=== PATIENT | female | born 1935 | race Caucasian/White ===

== ENCOUNTER → 2016-12-14 | Outpatient (CLI) | payer OTHER, MEDICARE ==
[~2016-12-14] MED LIST: ACET-1256 PO; ATOR-26 PO; CHOL100010 PO; COEN1CAP46 PO; DIGO0.1219 PO; DIGO0.1267 PO; LPR25 PO; LSX20 PO; METO25TA56 PO; PLV75 PO; RAMI2.5C PO; XRL20 PO
== END | disposition home or self-care (01) ==
LOC: C.LABSPEC 16:14
PROVIDERS: ATTEND Physician Assistant
DX: N95.0 Postmenopausal bleeding (principal)

== ENCOUNTER → 2016-12-18 | Outpatient (CLI) | payer OTHER, MEDICARE ==
[2016-12-18 13:33] LABS: BASO % 0.6 %; BASO ABS # 0.04 K/uL (0-0.2); COMPLETE YES; EOS % 2.9 %; HEMATOCRIT 43.1 % (37-47); LYMPH % 37.4 %; LYMPH ABS # 2.59 K/uL (1.2-3.4); MEAN CELL VOLUME 81.5 fL (80-100); MEAN CORPUSCULAR HEMOGLOBIN 24.8 pg (25-34); MEAN CORPUSCULAR HGB CONC 30.4 g/dl (32-36); MEAN PLATELET VOLUME 10.6 fL (7.4-10.4); NEUT % 49.1 %; PLATELET COUNT 243 K/uL (130-400); RED BLOOD COUNT 5.29 M/uL (4.2-5.4); WHITE BLOOD COUNT 6.93 K/uL (4.8-10.8)
[2016-12-18 14:04] LABS: ESTIMATED AVERAGE GLUCOSE 151 mg/dl; HA1C FLAG Normal (Normal)
[2016-12-18 14:40] LABS: BLOOD UREA NITROGEN 21 mg/dl (7-18); BUN/CREATININE RATIO 27.9 (10-20); CALCIUM 9.7 mg/dl (8.5-10.1); CARBON DIOXIDE 28 mmol/L (21-32); CHLORIDE 107 mmol/L (98-107); CREATININE 0.76 mg/dl (0.60-1.20); GLUCOSE 83 mg/dl (70-99); POTASSIUM 3.5 mmol/L (3.5-5.1); SODIUM 145 mmol/L (136-145)
[2016-12-18 14:51] LABS: FERRITIN 10.1 ng/ml (8.0-388.0); TOTAL IRON BINDING CAPACITY 489 mcg/dl (250-450)
--- NOTE | 2016-12-22 08:18 | CODING QUERY MEDICAL NECESSITY ---
SUPPORTING DIAGNOSIS NEEDED Dr. Culp, A supporting diagnosis is required for the test/procedure performed on this patient in order for us to be reimbursed by the patient's insurance. Please provide a supporting diagnosis for the following test/procedure listed below next to the test name along with your signature. *If there is no additional diagnosis for this patient that would support the following test/procedure please document that below next to the test/procedure. Test(s)/Procedure(s) that require a supporting diagnosis: * ([id number]) B12 VITAMIN LEVEL DIAGNOSIS: DATE OF SERVICE: 12/18/16 Provider Signature: Date: Thank you [place] [facility] Information Management Once completed, please kindly fax back to [phone] For questions please call [phone]
== END | disposition home or self-care (01) ==
LOC: C.LABBC 11:21
PROVIDERS: ATTEND Internal Medicine Geriatric Medicine
DX: I10 Essential (primary) hypertension (principal); I25.10 Atherosclerotic heart disease of native coronary artery without angina pectoris; M81.0 Age-related osteoporosis without current pathological fracture; E11.9 Type 2 diabetes mellitus without complications; E55.9 Vitamin D deficiency, unspecified; I48.2 Chronic atrial fibrillation; D64.9 Anemia, unspecified

== ENCOUNTER → 2017-03-09 | Day surgery (SDC) | payer OTHER, MEDICARE ==
[2017-03-06 14:12] VITALS: BMI 25.0
--- NOTE | 2017-03-06 14:54 | PAT Medication Instructions ---
Service Date Mar 06, 2017. Current Home Medication List Acetaminophen (Tylenol), 1-2 TAB PO U PRN for Pain Atorvastatin (Lipitor), 80 MG PO HS Cholecalciferol (Vitamin D), 2,000 INTER.UNIT PO QPM Clopidogrel Bisulfate (Clopidogrel), 75 MG PO QAM Coenzyme Q10 (Ubidecarenone) (Coq-10 100 mg), 100 MG PO QAM Digoxin (Digox), 1 TAB PO QDL Furosemide (Furosemide), 20 MG PO QPM Metoprolol Tartrate (Lopressor) (Lopressor), 50 MG PO QAM Metoprolol Tartrate (Lopressor) (Lopressor), 25 MG PO QPM Ramipril (Ramipril), 2.5 MG PO QPM Rivaroxaban (Xarelto), 20 MG PO QPM Medication Instructions For Your Scheduled Surgery - Per surgeon/skidder lever operator instructions: Clopidogrel Bisulfate (Clopidogrel), 75 MG PO QAM Rivaroxaban (Xarelto), 20 MG PO QPM - Hold the following medications 03/07/17: Coenzyme Q10 (Ubidecarenone) (Coq-10 100 mg), 100 MG PO QAM - Take the following medications as scheduled the morning of surgery with a small sip of water: Metoprolol Tartrate (Lopressor) (Lopressor), 50 MG PO QAM Acetaminophen (Tylenol), 1-2 TAB PO U PRN for Pain (if needed) - Hold the following medications as scheduled the night before surgery: Ramipril (Ramipril), 2.5 MG PO QPM - Take the following medications as scheduled the night before surgery: Metoprolol Tartrate (Lopressor) (Lopressor), 25 MG PO QPM Furosemide (Furosemide), 20 MG PO QPM Digoxin (Digox), 1 TAB PO QDL Cholecalciferol (Vitamin D), 2,000 INTER.UNIT PO QPM Atorvastatin (Lipitor), 80 MG PO HS Acetaminophen (Tylenol), 1-2 TAB PO U PRN for Pain (if needed) If you have any questions please call us at [phone] or [phone] or [phone]
[2017-03-06 15:35] LABS: BASO % 0.4 %; BASO ABS # 0.03 K/uL (0-0.2); COMPLETE YES; EOS % 2.7 %; HEMATOCRIT 38.3 % (37-47); IG% 0.1 %; LYMPH ABS # 2.26 K/uL (1.2-3.4); MEAN CELL VOLUME 82.2 fL (80-100); MEAN CORPUSCULAR HEMOGLOBIN 25.8 pg (25-34); MEAN CORPUSCULAR HGB CONC 31.3 g/dl (32-36); MEAN PLATELET VOLUME 10.4 fL (7.4-10.4); MONO % 9.5 %; NEUT % 55.3 %; PLATELET COUNT 246 K/uL (130-400); RED BLOOD COUNT 4.66 M/uL (4.2-5.4); WHITE BLOOD COUNT 7.07 K/uL (4.8-10.8)
[2017-03-06 16:21] LABS: BUN/CREATININE RATIO 20.3 (10-20); CALCIUM 9.6 mg/dl (8.5-10.1); CREATININE 0.95 mg/dl (0.60-1.20); POTASSIUM 3.8 mmol/L (3.5-5.1)
[~2017-03-09] VITALS: Ht 147.3 cm; Wt 54.4 kg
[~2017-03-09] MED LIST changes: +ACETAMINOPHEN 325 MG TAB PO PRN; +ACETAMINOPHEN 650 MG SUPP PR PRN; +ATROPINE SULFATE 0.1 MG/ML 5ML SYR IV PRN; -DIGO0.1267 PO; +EpHEDrine SULFATE INJ 50 MG/ML AMP IV PRN; +FENTANYL CITRATE INJ 50 MCG/1 ML 2 ML VIAL IV PRN; +FENTANYL CITRATE INJ 50 MCG/1 ML 2 ML VIAL ONE; +IBUPROFEN 200 MG TAB PO PRN; +IBUPROFEN 600 MG TAB PO PRN; +LACTATED RINGER'S 1000ML 1,000 ML IV SCH; +LIDOCAINE HCL 2% 2 ML VIAL (20MG/ML) ONE; -LPR25 PO; +MoRPHine SULFATE 2 MG/ML CARP IV PRN; +MoRPHine SULFATE 4 MG/ML 1 ML CARP\\VIAL IV PRN; +NURSING VERBAL MED ORDER ONE; +ONDANSETRON INJ 2 MG/ML 2 ML VIAL IV PRN; +ONDANSETRON INJ 2 MG/ML 2 ML VIAL ONE; +OXYCODONE/ACETAMINOPHEN 5-325 TAB PO PRN; +PHENYLEPHRINE 100MCG/ML 5ML SYR ONE; +PROPOFOL IV EMULSION 10 MG/ML 20 ML VIAL IV ONE
[2017-03-09 05:35] VITALS: BP 177/71; PULSE 79; TEMP 36.6; O2SAT 97; Ht 147.3 cm; Wt 54.4 kg
--- NOTE | 2017-03-09 06:49 | History & Physical Bridge Note ---
H&P Re-Evaluation Bridge Note: I have examined the patient, reviewed the History & Physical and in the interval since the performance of the History & Physical I have noted the following changes of clinical significance: No changes noted
--- NOTE | 2017-03-09 07:51 | Discharge Instructions ---
Discharge Instructions Date of Service Mar 09, 2017. Visit Reason for Visit: Post Menopausal Bleeding, Endometrial Mass Discharge Discharge Diagnosis / Problem: s/p d&c/hysteroscopy and removal of mass Discharge Goals Goal(s): Specific goals Activity Recommendations Activity Limitations: per Instructions/Follow-up section Anesthesia . Post Anesthesia Instructions: If you have had General Anesthesia or IV Sedation: * Do not drive today. * Resume driving when surgeon permits. * Do not make important decisions or sign legal documents today. * Call surgeon for: 1. Temperature elevations greater than 101 degrees F. 2. Uncontrollable pain. 3. Excessive bleeding. 4. Persistent nausea and vomiting. 5. Medication intolerance (nausea, vomiting or rash). * For nausea and vomiting use only clear liquids such as: tea, soda, bouillon until nausea subsides, then gradually increase diet as tolerated. * If you have any concerns or questions, call your surgeon's office. If physician is unavailable and it is an emergency, call 911 or go to the nearest emergency room. . Instructions / Follow-Up Instructions / Follow-Up ACTIVITY RECOMMENDATIONS: * Avoid tampons, douching, hot tubs, pools, and intercourse until bleeding has stopped. * May shower as usual. * No strenuous activity for 24-48 hours. After 24-48 hours, you may do anything you feel like doing (driving and sports are okay). SPECIAL CARE INSTRUCTIONS: Special Diet: * Mild nausea may occur in the immediate post-operative period. * Take clear liquids such as tea, cola or bouillon until all nausea has subsided; you may then resume your normal diet. Special Care: * Light bleeding and vaginal spotting can last from a few days to 3-4 weeks. Call your doctor if bleeding becomes heavier than the heaviest part of your period. * Check your temperature twice a day for one week. If it goes above 100.4 degrees Fahrenheit (38.0 Celsius), notify your doctor. * Call your doctor's office for an appointment for 6 weeks after your surgery. FOLLOW-UP VISIT: Call your doctor's office for an appointment for 6 weeks after your surgery. Diet Recommendations Recommended Home Diet: no limitations, resume previous diet Pending Studies Studies pending at discharge: no Medical Emergencies . Who to Call and When: Medical Emergencies: If at any time you feel your situation is an emergency, please call 911 immediately. . Non-Emergent Contact Non-Emergency issues call your: Parts Remover . . "Provider Documentation" section prepared by Evelia Hammer. .
--- NOTE | 2017-03-09 07:53 | [facility] Post Operative Brief Note ---
Immediate Operative Summary Operative Date Mar 09, 2017. Pre-Operative Diagnosis postmenopausal bleeding endometrial mass Post-Operative Diagnosis same Procedure(s) Performed D&C/HSC removal of endometrial mass via myosure Surgeon Jaquelin Limehouse Worker Surgeon(s) none Estimated Blood Loss 5cc Findings uterus sounded to 6-7cm, broad based mass noted on the anterior wall of the uterus, other endometrium appeared atrophic Fluids (cc crystalloids) 500cc, 100cc hsc deficit Specimens curretings myosure mass Drains none Anesthesia lma Complication(s) None Disposition Recovery Room / PACU
--- NOTE | 2017-03-09 08:43 | Anesthesiology Progress Note ---
Anesthesia Post Op Note Date & Time Mar 09, 2017 at 08:43 Vital Signs Pain Intensity: 4 Vital Signs Past 12 Hours Date Time Temp Pulse Resp B/P (MAP) Pulse Ox O2 Delivery O2 Flow Rate FiO2 03/09/17 08:40 36.6 03/09/17 08:37 63 22 98 03/09/17 08:37 65 22 03/09/17 08:36 160/73 03/09/17 08:32 63 16 94 03/09/17 08:32 62 16 03/09/17 08:31 146/57 03/09/17 08:28 62 12 03/09/17 08:28 60 12 95 03/09/17 08:26 153/64 03/09/17 08:23 67 15 94 03/09/17 08:23 63 15 03/09/17 08:22 71 20 03/09/17 08:22 67 20 97 03/09/17 08:21 173/87 03/09/17 08:17 62 16 03/09/17 08:17 63 16 99 03/09/17 08:16 162/79 03/09/17 08:12 73 17 03/09/17 08:12 72 17 100 03/09/17 08:11 174/69 03/09/17 08:07 62 14 03/09/17 08:07 61 14 100 03/09/17 08:06 63 19 182/71 100 03/09/17 08:06 65 19 03/09/17 08:01 63 17 163/73 100 03/09/17 08:01 67 17 03/09/17 07:56 65 17 03/09/17 07:56 65 17 170/70 100 03/09/17 07:52 162/79 03/09/17 07:51 36.6 62 14 162/79 100 Mask 10 03/09/17 05:35 36.6 79 20 177/71 (106) 97 Room Air Notes Mental Status: alert / awake / arousable, participated in evaluation Pt Amnestic to Procedure: Yes Nausea / Vomiting: adequately controlled Pain: adequately controlled Airway Patency, RR, SpO2: stable & adequate BP & HR: stable & adequate Hydration State: stable & adequate Anesthetic Complications: no major complications apparent
[2017-03-09 08:53] VITALS: BP 148/64; PULSE 64; TEMP 36.5; O2SAT 94
--- NOTE | 2017-03-09 09:02 | OPERATIVE REPORT ---
DATE OF OPERATION: 03/09/2017 PREOPERATIVE DIAGNOSES: 1. Endometrial mass. 2. Post-menopausal bleeding. POSTOPERATIVE DIAGNOSES: Same. PROCEDURE: D&C, hysteroscopy with MyoSure removal of endometrial mass. SURGEON: Dr. Evelia Hammer. ANESTHESIA: General per laryngeal mask. ESTIMATED BLOOD LOSS: 5 mL. FLUIDS: 500 mL of IV fluids and 100 mL hysteroscopic deficit. URINE OUTPUT: About 50 mL of clear yellow urine drained from the bladder at the beginning of the procedure. INDICATIONS: Davida is an 81-year-old postmenopausal female who presented to ri for postmenopausal bleeding. She had some blood in her uterus with outlining an endometrial mass. FINDINGS: Uterus sounded to 6-7 cm. There was a broad-based endometrial mass/growth from the anterior uterine wall. The other endometrium appeared normal. Tubal ostia visualized and normal. COMPLICATIONS: None. DRAINS: None. DISPOSITION: To recovery room in stable condition. DESCRIPTION OF PROCEDURE: The patient was taken to the operating room, where she was identified verbally and by bracelet. She was placed in dorsal supine position in Yellofin stirrups prior to going to sleep, to make sure the patient comfort. She was then put to sleep via anesthesia and laryngeal mask. She was prepped and draped in normal sterile fashion. Timeout was held identifying correct patient, procedure and positioning. An exam under anesthesia was performed. The uterus was small and mobile. There were no appreciable adnexal masses. The bladder was drained of urine. A Flores retractor was placed in the posterior vagina. The anterior lip of the cervix was grasped with a single tooth tenaculum. The uterus sounded to 6-7 cm and it was dilated to #25 Hanna dilator. The MyoSure hysteroscope was introduced with the above noted finding of a mass, broad based mass on the anterior uterine wall. A MyoSure light was placed through the scope and the mass was removed in its entirety. Hemostasis was noted to be good. The MyoSure scope was removed. A curettage was performed and the procedure was terminated. All instruments were removed from the vagina. Hemostasis was noted to be good. There was split in the perineal skin for manipulation that was hemostatic and did not require stitching. All sponge, lap and needle counts were correct x2. The patient tolerated the procedure well and was taken to recovery room in stable condition. I attest to the content of the Intraoperative Record and any orders documented therein. Any exceptions are noted below. ZACK
[2017-03-09 09:30] VITALS: BP 149/61; PULSE 63; TEMP 36.4; O2SAT 99
== END | disposition home or self-care (01) ==
LOC: C.ACU 05:12
PROVIDERS: ATTEND Obstetrics & Gynecology
DX: C54.1 Malignant neoplasm of endometrium (principal); I34.0 Nonrheumatic mitral (valve) insufficiency; I48.2 Chronic atrial fibrillation; I25.10 Atherosclerotic heart disease of native coronary artery without angina pectoris; I49.5 Sick sinus syndrome; I10 Essential (primary) hypertension; I66.03 Occlusion and stenosis of bilateral middle cerebral arteries; E78.5 Hyperlipidemia, unspecified; E11.9 Type 2 diabetes mellitus without complications; I70.1 Atherosclerosis of renal artery; K21.9 Gastro-esophageal reflux disease without esophagitis; D64.9 Anemia, unspecified; E55.9 Vitamin D deficiency, unspecified; H04.129 Dry eye syndrome of unspecified lacrimal gland; M81.0 Age-related osteoporosis without current pathological fracture; Z85.3 Personal history of malignant neoplasm of breast; Z86.73 Personal history of transient ischemic attack (TIA), and cerebral infarction without residual deficits; Z79.01 Long term (current) use of anticoagulants; Z79.899 Other long term (current) drug therapy; Z95.0 Presence of cardiac pacemaker

== ENCOUNTER → 2017-05-11 | Outpatient (CLI) | payer OTHER, MEDICARE ==
[~2017-05-11] MED LIST changes: -ACETAMINOPHEN 325 MG TAB PO PRN; -ACETAMINOPHEN 650 MG SUPP PR PRN; -ATROPINE SULFATE 0.1 MG/ML 5ML SYR IV PRN; -EpHEDrine SULFATE INJ 50 MG/ML AMP IV PRN; -FENTANYL CITRATE INJ 50 MCG/1 ML 2 ML VIAL IV PRN; -FENTANYL CITRATE INJ 50 MCG/1 ML 2 ML VIAL ONE; -IBUPROFEN 200 MG TAB PO PRN; -IBUPROFEN 600 MG TAB PO PRN; -LACTATED RINGER'S 1000ML 1,000 ML IV SCH; -LIDOCAINE HCL 2% 2 ML VIAL (20MG/ML) ONE; -MoRPHine SULFATE 2 MG/ML CARP IV PRN; -MoRPHine SULFATE 4 MG/ML 1 ML CARP\\VIAL IV PRN; -NURSING VERBAL MED ORDER ONE; -ONDANSETRON INJ 2 MG/ML 2 ML VIAL IV PRN; -ONDANSETRON INJ 2 MG/ML 2 ML VIAL ONE; -OXYCODONE/ACETAMINOPHEN 5-325 TAB PO PRN; -PHENYLEPHRINE 100MCG/ML 5ML SYR ONE; -PROPOFOL IV EMULSION 10 MG/ML 20 ML VIAL IV ONE
[2017-05-11 13:53] LABS: BASO % 0.2 %; BASO ABS # 0.02 K/uL (0-0.2); COMPLETE YES; EOS % 4.8 %; IG% 0.2 %; LYMPH % 14.5 %; LYMPH ABS # 1.52 K/uL (1.2-3.4); MEAN CELL VOLUME 77.8 fL (80-100); MEAN CORPUSCULAR HEMOGLOBIN 23.3 pg (25-34); MEAN PLATELET VOLUME 10.6 fL (7.4-10.4); MONO % 12.2 %; NEUT % 68.1 %; PLATELET COUNT 298 K/uL (130-400); RED BLOOD COUNT 4.63 M/uL (4.2-5.4); WHITE BLOOD COUNT 10.45 K/uL (4.8-10.8)
== END | disposition home or self-care (01) ==
LOC: C.LABBC 11:43
PROVIDERS: ATTEND Physician Assistant Medical
DX: Z51.81 Encounter for therapeutic drug level monitoring (principal); Z79.01 Long term (current) use of anticoagulants; E11.9 Type 2 diabetes mellitus without complications; I48.2 Chronic atrial fibrillation

== ENCOUNTER → 2017-06-27 | Outpatient (CLI) | payer OTHER, MEDICARE ==
--- NOTE | 2017-06-28 07:55 | MAMMOGRAPHY REPORT ---
BILATERAL DIGITAL SCREENING MAMMOGRAM TOMOSYNTHESIS WITH CAD: 06/27/2017 CLINICAL HISTORY: Asymptomatic. Personal history of breast cancer. TECHNIQUE: Breast tomosynthesis in addition to standard 2D mammography was performed. Current study was also evaluated with a Computer Aided Detection (CAD) system. COMPARISON: Comparison is made to exams dated: 12/08/2014 mammogram, 10/14/2013 mammogram, 10/02/2011 ma mmogram, 12/09/2015 mammogram, 10/07/2012 mammogram, and 09/30/2010 mammogram - [facility]. BREAST COMPOSITION: The tissue of both breasts is extremely dense, which lowers the sensitivity of m ammography. FINDINGS: No suspicious masses, calcifications, or areas of architectural distortion are noted in ei ther breast. There has been no significant interval change compared to prior exams. There are stabl e postsurgical changes in the right upper inner posterior breast, including a stable density, archite ctural distortion, surgical clips and a biopsy clip at the lumpectomy bed, best seen on the MLO view. Scattered bilateral benign-appearing calcifications are not significantly changed. Nodular asymmetr y in the left medial posterior breast on the CC view is similar dating back to at least the 2008 exam . IMPRESSION: ACR BI-RADS CATEGORY 2: BENIGN There is no mammographic evidence of malignancy. A 1 year screening mammogram is recommended. The pa tient will receive written notification of the results. Approximately 10% of breast cancers are not detected with mammography. A negative mammographic report should not delay biopsy if a clinically suggestive mass is present. Rola Castillo M.D. /:06/27/2017 15:39:42 Contract Programmer: Linda RIVERA(Dagoberto)(M), [facility] letter sent: Normal 1/2 BI-RADS Code: ACR BI-RADS Category 2: Benign
== END | disposition home or self-care (01) ==
LOC: C.MAMM 13:19
PROVIDERS: ATTEND Obstetrics & Gynecology
DX: Z12.31 Encounter for screening mammogram for malignant neoplasm of breast (principal)

== ENCOUNTER → 2017-08-08 | Outpatient (CLI) | payer OTHER, MEDICARE ==
[2017-08-08 14:27] LABS: ALBUMIN 3.6 gm/dl (3.4-5.0); ALT/SGPT 29 U/L (12-78); AST/SGOT 22 U/L (15-37); BLOOD UREA NITROGEN 20 mg/dl (7-18); CALCIUM 9.1 mg/dl (8.5-10.1); CARBON DIOXIDE 28 mmol/L (21-32); CREATININE 0.73 mg/dl (0.60-1.20); GLUCOSE 130 mg/dl (70-99); POTASSIUM 3.2 mmol/L (3.5-5.1); SODIUM 140 mmol/L (136-145)
[2017-08-08 14:33] LABS: BASO % 0.9 %; BASO ABS # 0.05 K/uL (0-0.2); EOS % 2.2 %; EOS ABS # 0.13 K/uL (0-0.5); HEMATOCRIT 31.1 % (37-47); HEMOGLOBIN 8.5 g/dL (12.0-16.0); MEAN CELL VOLUME 67.3 fL (80-100); MEAN CORPUSCULAR HEMOGLOBIN 18.4 pg (25-34); MEAN CORPUSCULAR HGB CONC 27.3 g/dl (32-36); MEAN PLATELET VOLUME 10.1 fL (7.4-10.4); MONO % 11.9 %; MONO ABS # 0.69 K/uL (0.11-0.59); NEUT ABS # 2.44 K/uL (1.4-6.5); PLATELET COUNT 267 K/uL (130-400); RED CELL DISTRIBUTION WIDTH CV 18.2 % (11.5-14.5); WHITE BLOOD COUNT 5.81 K/uL (4.8-10.8)
[2017-08-08 14:38] LABS: ALKALINE PHOSPHATASE 72 U/L (45-117); CHOLESTEROL 127 mg/dl (0-200); LDL CHOLESTEROL CALCULATED 69 mg/dl; TOTAL PROTEIN 7.1 gm/dl (6.4-8.2)
== END | disposition home or self-care (01) ==
LOC: C.LABBC 10:28
PROVIDERS: ATTEND Internal Medicine Geriatric Medicine
DX: I10 Essential (primary) hypertension (principal); I25.10 Atherosclerotic heart disease of native coronary artery without angina pectoris; E78.5 Hyperlipidemia, unspecified; E11.9 Type 2 diabetes mellitus without complications; I49.5 Sick sinus syndrome; C55 Malignant neoplasm of uterus, part unspecified

== ENCOUNTER 2017-10-03 07:13 | Emergency (ER) | payer OTHER, MEDICARE ==
[~2017-10-03] VITALS: Ht 147.3 cm; Wt 53.0 kg
[~2017-10-03 07:13] MED LIST changes: -ACET-1256 PO; -CHOL100010 PO; +CLOP1TAB15 PO; -COEN1CAP46 PO; +FERR325T5 PO; +FURO-85 PO; -LSX20 PO; -PLV75 PO; +POTA20TA16 PO; +RIVA1TAB4 PO; +VITAMIN D PO; -XRL20 PO
[2017-10-03 07:20] VITALS: TEMP 36.6; O2SAT 99; Ht 147.3 cm; Wt 53.0 kg
[2017-10-03] MEDS ORDERED: SODIUM CHLORIDE 0.9% 1000ML 1,000 ML IV STA (07:49)
[2017-10-03 08:05] LABS: INR 1.4 (0.9-1.1); PTT PATIENT 26.1 SECONDS (21.0-31.0)
[2017-10-03 08:07] LABS: CALCIUM 9.7 mg/dl (8.5-10.1); CREATININE 0.79 mg/dl (0.60-1.20); POTASSIUM 3.9 mmol/L (3.5-5.1)
[2017-10-03] MEDS ORDERED: FERR1TAB13 PO (08:13)
[2017-10-03] MEDS ORDERED: CHOL100010 PO (08:13)
[2017-10-03] MEDS ORDERED: CLOP1TAB15 PO (08:13)
[2017-10-03] MEDS ORDERED: LNX125 PO (08:13)
[2017-10-03] MEDS ORDERED: METO25TA56 PO ×2 (08:13)
[2017-10-03] MEDS ORDERED: ATOR80TA PO (08:13)
[2017-10-03] MEDS ORDERED: COEN100C3 PO (08:13)
[2017-10-03] MEDS ORDERED: ALT25 PO (08:13)
[2017-10-03] MEDS ORDERED: POTA20TA16 PO (08:13)
[2017-10-03] MEDS ORDERED: RIVA1TAB4 PO (08:13)
[2017-10-03 08:16] LABS: CKMB 3.6 ng/ml (0.5-3.6); TOTAL PROTEIN 7.6 gm/dl (6.4-8.2)
--- NOTE | 2017-10-03 08:17 | DIAGNOSTIC IMAGING REPORT ---
CHEST ONE VIEW PORTABLE HISTORY: 81 years-old Female EVALUATE ALTERED MENTAL STATUS/WEAKNESS acute weakness with altered mental status COMPARISON: Chest radiograph 07/25/2016 TECHNIQUE: Portable AP view of the chest FINDINGS: Cardiac silhouette enlarged, unchanged. Atherosclerosis of the aorta. Single lead left subclavian pacer is again noted which is also unchanged. No pneumothorax or pleural effusion. Patchy opacity of the left lung base redemonstrated. Surgical clips project over the medial right lung base. No overt pulmonary edema. Bones of the chest appear grossly intact. Sigmoidal scoliosis partially imaged. IMPRESSION: 1. Cardiomegaly without overt pulmonary edema. 2. Subsegmental left basilar opacity is unchanged, likely reflecting atelectasis or scarring. The above report was generated using voice recognition software. It may contain grammatical, syntax or spelling errors. Electronically signed by: Kobe Smith M.D. 10/03/2017 8:16 AM Dictated Date/Time: 10/03/2017 8:14 AM
[2017-10-03 08:18] LABS: HEMATOCRIT 44.6 % (37-47); HEMOGLOBIN 13.1 g/dL (12.0-16.0); MEAN CELL VOLUME 70.3 fL (80-100); MEAN CORPUSCULAR HEMOGLOBIN 20.7 pg (25-34); MEAN CORPUSCULAR HGB CONC 29.4 g/dl (32-36); PLATELET COUNT 263 K/uL (130-400); RED CELL DISTRIBUTION WIDTH CV 23.2 % (11.5-14.5); RED CELL DISTRIBUTION WIDTH SD 58.9 fL (36.4-46.3); WHITE BLOOD COUNT 7.12 K/uL (4.8-10.8)
--- NOTE | 2017-10-03 08:21 | DIAGNOSTIC IMAGING REPORT ---
CT HEAD WITHOUT CONTRAST (CT) CLINICAL HISTORY: Altered mental status. Weakness. COMPARISON STUDY: 05/04/2016 TECHNIQUE: Axial CT of the brain is performed from the vertex to the skull base. IV contrast was not administered for this examination. A dose lowering technique was utilized adhering to the principles of ALARA. CT DOSE: 638.56 mGycm FINDINGS: No intra or extra-axial mass lesions are visualized. There is no CT evidence of acute cortical infarction. There is no evidence of midline shift. There is no acute hemorrhage. No calvarial fractures are visualized. There are patchy white matter hypodensities likely on a small vessel basis. 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 There is no evidence of pathologic ventricular dilatation. There is no evidence of acute sinusitis IMPRESSION: No acute intracranial findings Electronically signed by: Tom Jenkins M.D. 10/03/2017 8:19 AM Dictated Date/Time: 10/03/2017 8:17 AM
[2017-10-03 08:37] LABS: BASO ABS # 0.07 K/uL (0-0.2); EOS % 1.1 %; EOS ABS # 0.08 K/uL (0-0.5); IG# 0.01 K/uL (0.00-0.02); LYMPH % 23.2 %; LYMPH ABS # 1.65 K/uL (1.2-3.4); MONO % 11.4 %; MONO ABS # 0.81 K/uL (0.11-0.59); NEUT % 63.2 %
--- NOTE | 2017-10-03 09:26 | EMERGENCY ROOM VISIT NOTE ---
History Report prepared by [place]: Annia Landers Under the Supervision of: Dr. Giorgio Zelaya D.O. First contact with patient: 07:39 Chief Complaint: CONFUSION Stated Complaint: AMS Nursing Triage Summary: Pt arrives via ALS litter from home with c/o confusion for the past couple days. Per medic, pt lives alone, called 911 herself. Medic reports pt was not able to tell him her or answer other questions that were asked. Medic reports pt reported to him "time lapses", difficulty ambulating, and difficulty speaking which he states he did not observe. Upon arrival, pt speaking clearly, was oriented to place, month, year, president. States she had a fall at the end of Jul resulting in left knee pain. Edema noted to lower extremities. Pt denies pain. Denies urinary s/sx. Hx of a.fib, has a pacer. History of Present Illness The patient is a 81 year old female who presents to the Emergency Room with complaints of constant confusion for the past few days. The patient was brought to the ED by ambulance for further evaluation. Per EMS, the patient lives at home alone and called 911 herself this morning. He reports that the patient was unable to give her or answer other questions. The patient is currently complaining of confusion. She states that she has "lost track of time" over the past few days. She has been waking up in her home confused and states that she doesn't recognize the furniture or where she. As she goes through her day, her confusion improves. The patient states that she is not able to get around as well at home. She is eating and drinking normally. She states that she is 62 years old. The patient denies headache, chest pain, shortness of breath, weakness, abdominal pain, and vomiting. She notes that she fell at the end of July and injured her left knee. She denies any other injury occurring at that time. The patient takes Xarelto for A-fib. She has a pacemaker in place. Source of History: patient, EMS Onset: a few days ago Position: other (global) Quality: other (confusion) Timing: constant Modifying Factors (Relieving): other (time - improves throughout the day) Associated Symptoms: No headache, No chest pain, No SOB, No vomiting, No abdominal pain, No weakness Review of Systems See HPI for pertinent positives & negatives. A total of 10 systems reviewed and were otherwise negative. Past Medical & Surgical Medical Problems: (1) A-fib (2) Afib (3) Expressive aphasia (4) heart disease (5) Hypertension Family History Cancer Diabetes mellitus Gallbladder disease Heart disease Hypertension Lung disease Social History Smoking Status: Former Smoker Drug Use: none Marital Status: single Housing Status: lives alone Occupation Status: retired Current/Historical Medications Scheduled Atorvastatin (Lipitor), 80 MG PO DAILY Cholecalciferol (Vitamin D), 3,000 UNITS PO DAILY Clopidogrel (Plavix), 75 MG PO DAILY Coenzyme Q10 (Ubidecarenone) (Co Q-10), 100 MG PO DAILY Digoxin (Digoxin), 0.125 MG PO DAILY Ferrous Sulfate (Kp Ferrous Sulfate), 325 MG PO DAILY Metoprolol Tartrate (Lopressor) (Lopressor), 50 MG PO QAM Metoprolol Tartrate (Lopressor) (Lopressor), 25 MG PO QPM Potassium Ext Rel (Klor-Con), 20 MEQ PO DAILY Ramipril (Altace), 2.5 MG PO DAILY Rivaroxaban (Xarelto), 20 MG PO QPM Allergies Coded Allergies: Diltiazem (Verified Allergy, Severe, HIVES, 10/03/17) Alendronate (Verified Allergy, Unknown, bad stomach pains, 10/03/17) Cholestyramine (Verified Allergy, Unknown, UNKNOWN, 10/03/17) Ezetimibe (Verified Allergy, Unknown, UNKNOWN, 10/03/17) Ibandronic Acid (Verified Allergy, Unknown, UNKNOWN, 10/03/17) Niacin (Verified Allergy, Unknown, UNKNOWN, 10/03/17) Risedronate (Verified Allergy, Unknown, UNKNOWN, 10/03/17) Simvastatin (Verified Allergy, Unknown, UNKNOWN, 10/03/17) Physical Exam Vital Signs Date Time Temp Pulse Resp B/P (MAP) Pulse Ox O2 Delivery O2 Flow Rate FiO2 10/03/17 09:46 86 18 162/88 95 10/03/17 09:00 70 18 166/79 100 Room Air 10/03/17 08:22 67 18 167/111 97 Room Air 10/03/17 07:24 88 10/03/17 07:20 99 Room Air 10/03/17 07:20 36.6 81 18 176/85 100 Room Air Physical Exam VITAL SIGNS: were reviewed as above. GENERAL:Non-toxic in appearance. SKIN: Warm dry and pink. HEAD: Normocephalic and atraumatic. OROPHARYNX: Is clear and moist NECK: Supple without lymphadenopathy or meningismus. LUNGS: clear. HEART: Regular rate and rhythm. ABDOMEN: Soft and nontender. EXTREMITIES: Warm and well perfused. NEUROLOGICALLY: Awake alert and oriented without focal deficit. Cranial nerves 2 -12 are intact. There is no pronator drift. Cerebellar testing is within normal limits. There is no nystagmus. There is no facial droop. Speech is clear. Vision is grossly normal. MUSCULOSKELETAL: Good muscle tone. No evidence of trauma. Medical Decision & Procedures ER Provider Diagnostic Interpretation: Radiology results as stated below per my review and radiologist interpretation: CT HEAD WITHOUT CONTRAST (CT) CLINICAL HISTORY: Altered mental status. Weakness. COMPARISON STUDY: 05/04/2016 TECHNIQUE: Axial CT of the brain is performed from the vertex to the skull base. IV contrast was not administered for this examination. A dose lowering technique was utilized adhering to the principles of ALARA. CT DOSE: 638.56 mGycm FINDINGS: No intra or extra-axial mass lesions are visualized. There is no CT evidence of acute cortical infarction. There is no evidence of midline shift. There is no acute hemorrhage. No calvarial fractures are visualized. There are patchy white matter hypodensities likely on a small vessel basis. 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 There is no evidence of pathologic ventricular dilatation. There is no evidence of acute sinusitis IMPRESSION: No acute intracranial findings Electronically signed by: Tom Jenkins M.D. 10/03/2017 8:19 AM Dictated Date/Time: 10/03/2017 8:17 AM CHEST ONE VIEW PORTABLE HISTORY: 81 years-old Female EVALUATE ALTERED MENTAL STATUS/WEAKNESS acute weakness with altered mental status COMPARISON: Chest radiograph 07/25/2016 TECHNIQUE: Portable AP view of the chest FINDINGS: Cardiac silhouette enlarged, unchanged. Atherosclerosis of the aorta. Single lead left subclavian pacer is again noted which is also unchanged. No pneumothorax or pleural effusion. Patchy opacity of the left lung base redemonstrated. Surgical clips project over the medial right lung base. No overt pulmonary edema. Bones of the chest appear grossly intact. Sigmoidal scoliosis partially imaged. IMPRESSION: 1. Cardiomegaly without overt pulmonary edema. 2. Subsegmental left basilar opacity is unchanged, likely reflecting atelectasis or scarring. The above report was generated using voice recognition software. It may contain grammatical, syntax or spelling errors. Electronically signed by: Kobe Smith M.D. 10/03/2017 8:16 AM Dictated Date/Time: 10/03/2017 8:14 AM Laboratory Results 10/03/17 07:00 Red Blood Count 6.34, Mean Corpuscular Volume 70.3, Mean Corpuscular Hemoglobin 20.7, Mean Corpuscular Hemoglobin Concent 29.4, Neutrophils (%) (Auto) 63.2, Lymphocytes (%) (Auto) 23.2, Monocytes (%) (Auto) 11.4, Eosinophils (%) (Auto) 1.1, Basophils (%) (Auto) 1.0, Neutrophils # (Auto) 4.50, Lymphocytes # (Auto) 1.65, Monocytes # (Auto) 0.81, Eosinophils # (Auto) 0.08, Basophils # (Auto) 0.07 10/03/17 07:00 Test 10/03/17 07:00 10/03/17 08:00 White Blood Count 7.12 K/uL (4.8-10.8) Red Blood Count 6.34 M/uL (4.2-5.4) Hemoglobin 13.1 g/dL (12.0-16.0) Hematocrit 44.6 % (37-47) Mean Corpuscular Volume 70.3 fL (80-100) Mean Corpuscular Hemoglobin 20.7 pg (25-34) Mean Corpuscular Hemoglobin Concent 29.4 g/dl (32-36) Platelet Count 263 K/uL (130-400) Neutrophils (%) (Auto) 63.2 % Lymphocytes (%) (Auto) 23.2 % Monocytes (%) (Auto) 11.4 % Eosinophils (%) (Auto) 1.1 % Basophils (%) (Auto) 1.0 % Neutrophils # (Auto) 4.50 K/uL (1.4-6.5) Lymphocytes # (Auto) 1.65 K/uL (1.2-3.4) Monocytes # (Auto) 0.81 K/uL (0.11-0.59) Eosinophils # (Auto) 0.08 K/uL (0-0.5) Basophils # (Auto) 0.07 K/uL (0-0.2) RDW Standard Deviation 58.9 fL (36.4-46.3) RDW Coefficient of Variation 23.2 % (11.5-14.5) Immature Granulocyte % (Auto) 0.1 % Immature Granulocyte # (Auto) 0.01 K/uL (0.00-0.02) Poikilocytosis PRESENT Microcytosis PRESENT Target Cells 1+ Prothrombin Time 14.1 SECONDS (9.0-12.0) Prothromb Time International Ratio 1.4 (0.9-1.1) Activated Partial Thromboplast Time 26.1 SECONDS (21.0-31.0) Partial Thromboplastin Ratio 1.0 Anion Gap 10.0 mmol/L (3-11) Est Creatinine Clear Calc Drug Dose 40.3 ml/min Estimated GFR () 81.4 Estimated GFR (Non- 70.2 BUN/Creatinine Ratio 27.8 (10-20) Calcium Level 9.7 mg/dl (8.5-10.1) Magnesium Level 1.9 mg/dl (1.8-2.4) Total Bilirubin 1.8 mg/dl (0.2-1) Direct Bilirubin 0.5 mg/dl (0-0.2) Aspartate Amino Transf (AST/SGOT) 51 U/L (15-37) Alanine Aminotransferase (ALT/SGPT) 45 U/L (12-78) Alkaline Phosphatase 88 U/L (45-117) Total Creatine Kinase 85 U/L (26-192) Creatine Kinase MB 3.6 ng/ml (0.5-3.6) Creatine Kinase MB Ratio 4.2 (0-3.0) Troponin I 0.020 ng/ml (0-0.045) Total Protein 7.6 gm/dl (6.4-8.2) Albumin 4.0 gm/dl (3.4-5.0) Lipase 124 U/L (73-393) Thyroid Stimulating Hormone (TSH) 3.700 uIu/ml (0.300-4.500) Urine Color DK YELLOW Urine Appearance CLEAR (CLEAR) Urine pH 5.0 (4.5-7.5) Urine Specific [place] 1.027 (1.000-1.030) Urine Protein 2+ (NEG) Urine Glucose (UA) NEG (NEG) Urine Ketones 1+ (NEG) Urine Occult Blood TRACE (NEG) Urine Nitrite NEG (NEG) Urine Bilirubin NEG (NEG) Urine Urobilinogen NEG (NEG) Urine Leukocyte Esterase NEG (NEG) Urine WBC (Auto) 1-5 /hpf (0-5) Urine RBC (Auto) 5-10 /hpf (0-4) Urine Hyaline Casts (Auto) 1-5 /lpf (0-5) Urine Epithelial Cells (Auto) 5-10 /lpf (0-5) Urine Bacteria (Auto) NEG (NEG) Laboratory results as stated above per my review. Medications Administered Medications (Trade) Dose Ordered Sig/Lexis Route Start Time Stop Time Status Last Admin Dose Admin Sodium Chloride 1,000 ml @ 250 mls/hr Q4H STAT IV 10/03/17 07:49 10/03/17 11:48 10/03/17 07:51 250 MLS/HR ECG Per My Interpretation Indication: altered mental status Rate (beats per minute): 80 Rhythm: atrial fibrillation Findings: LBBB, no ectopy ED Course 0739: Previous medical records were reviewed. The patient was evaluated in room A2. A complete history and physical examination was performed. 0749: NSS 1000 ml @ 250 mls/hr IV 0931: I reassessed the patient at this time. She is feeling better and resting comfortably. I discussed the results and treatment plan with the patient. I answered all pertaining questions that she had. She expressed understanding and verbalized agreement. The patient will be discharged home. Medical Decision Differentials include: Acute coronary syndrome, myocardial infarction, CVA, TIA , anemia, infection, pneumonia, UTI, pyelonephritis, poor nutrition, dehydration , electrolyte disturbance, and hypoglycemia. This is an 81-year-old female who presents to the ED with a chief complaint of transient confusion. The patient states that she has had the symptoms for a couple of days. She reports that she lives alone. She states that she lost track of time a couple of days ago. She did not recognize her house yesterday morning. She states that she fell a week ago and skinned up her knee. The patient denies any other significant symptoms.. Her physical exam was unremarkable. She is in no distress. She denies chest pains, headaches, shortness of breath or abdominal pains. She has been eating and drinking normally. She denies any vomiting or fevers. No diarrhea. The patient's neurologic exam was normal. Her physical exam was normal with exception of a slightly irregular heart rhythm. A 12-lead EKG reveals A. fib with a left bundle branch block at a rate of 81 which is chronic. A CT scan of the brain did not show acute process. Chest x-ray was negative for acute disease. CBC is normal, INR is 1.5, total bilirubin was slightly elevated at 1.8. TSH is normal, lipase was negative, cardiac enzymes are normal and a urine did not show infection. There was some ketones suggesting some dehydration. The patient was hydrated with IV fluids during her ED stay. She was told the results. She is felt to be stable for discharge and outpatient follow-up. The sister was in with the patient. She does not report that they need any services for her at home. Medication Reconcilliation Current Medication List: was personally reviewed by me Blood Pressure Screening Patient's blood pressure: Elevated blood pressure Blood pressure disposition: Referred to PCP Impression Primary Impression: Dehydration Scribe Attestation The scribe's documentation has been prepared under my direction and personally reviewed by me in its entirety. I confirm that the note above accurately reflects all work, treatment, procedures, and medical decision making performed by me. Departure Information Dispostion Home / Self-Care Referrals Man Culp M.D. (PCP) Forms HOME CARE DOCUMENTATION FORM, IMPORTANT VISIT INFORMATION, WORK / SCHOOL INSTRUCTIONS Patient Instructions My [facility] Additional Instructions Follow-up with your doctor for further care and evaluation in 1-2 days. Return to the emergency department for worsening or new symptoms or any concerns. You have been examined and treated today on an emergency basis only. This is not a substitute for, or an effort to provide, complete comprehensive medical care. It is impossible to recognize and treat all injuries or illnesses in a single emergency department visit. It is therefore important that you follow up closely with your doctor. Call as soon as possible for an appointment.
[2017-10-03 09:46] VITALS: BP 162/88; PULSE 86; O2SAT 95
== END 2017-10-03 09:41 | disposition home or self-care (01) ==
LOC: EDBD 07:13 → C.EDA 07:14
DX: E86.0 Dehydration (principal); I44.7 Left bundle-branch block, unspecified; I11.9 Hypertensive heart disease without heart failure; I48.91 Unspecified atrial fibrillation; R41.0 Disorientation, unspecified; Z79.02 Long term (current) use of antithrombotics/antiplatelets; Z79.01 Long term (current) use of anticoagulants; Z87.891 Personal history of nicotine dependence; Z83.3 Family history of diabetes mellitus; Z82.49 Family history of ischemic heart disease and other diseases of the circulatory system; Z83.79 Family history of other diseases of the digestive system; Z83.6 Family history of other diseases of the respiratory system; Z88.8 Allergy status to other drugs, medicaments and biological substances

== ENCOUNTER → 2017-10-05 | Outpatient (CLI) | payer OTHER, MEDICARE ==
[~2017-10-05] MED LIST changes: +ALT25 PO; -ATOR-26 PO; +ATOR80TA PO; +CHOL100010 PO; +COEN100C3 PO; -DIGO0.1219 PO; +FERR1TAB13 PO; -FERR325T5 PO; -FURO-85 PO; +LNX125 PO; -RAMI2.5C PO; -VITAMIN D PO
== END | disposition home or self-care (01) ==
LOC: C.LABBC 10:46
PROVIDERS: ATTEND Family Medicine Adult Medicine
DX: I48.2 Chronic atrial fibrillation (principal); Z51.81 Encounter for therapeutic drug level monitoring; Z79.899 Other long term (current) drug therapy

== ENCOUNTER → 2017-10-31 | Outpatient (CLI) | payer OTHER, MEDICARE ==
[2017-10-31 13:34] LABS: BLOOD UREA NITROGEN 24 mg/dl (7-18); CALCIUM 9.7 mg/dl (8.5-10.1); CARBON DIOXIDE 23 mmol/L (21-32); CREATININE 0.85 mg/dl (0.60-1.20); GLUCOSE 135 mg/dl (70-99); SODIUM 138 mmol/L (136-145)
[2017-10-31 13:35] LABS: HEMOGLOBIN A1C 7.4 % (4.5-5.6)
[2017-10-31 13:42] LABS: HEMATOCRIT 41.6 % (37-47); MEAN CELL VOLUME 70.7 fL (80-100); MEAN CORPUSCULAR HEMOGLOBIN 20.4 pg (25-34); MEAN CORPUSCULAR HGB CONC 28.8 g/dl (32-36); PLATELET COUNT 275 K/uL (130-400); RED CELL DISTRIBUTION WIDTH CV 21.1 % (11.5-14.5); RED CELL DISTRIBUTION WIDTH SD 54.7 fL (36.4-46.3); WHITE BLOOD COUNT 7.86 K/uL (4.8-10.8)
[2017-10-31 13:43] LABS: BASO ABS # 0.08 K/uL (0-0.2); EOS % 2.7 %; EOS ABS # 0.21 K/uL (0-0.5); IG# 0.01 K/uL (0.00-0.02); LYMPH % 28.5 %; LYMPH ABS # 2.24 K/uL (1.2-3.4); MONO % 11.1 %; MONO ABS # 0.87 K/uL (0.11-0.59); NEUT % 56.6 %; NEUT ABS # 4.45 K/uL (1.4-6.5)
== END | disposition home or self-care (01) ==
LOC: C.LABBC 11:29
PROVIDERS: ATTEND Internal Medicine Geriatric Medicine
DX: I10 Essential (primary) hypertension (principal); D64.9 Anemia, unspecified; E87.6 Hypokalemia; E11.9 Type 2 diabetes mellitus without complications

== ENCOUNTER 2020-03-30 19:32 | Inpatient (IN) ==
[2020-03-30] MEDS ORDERED: SODIUM CHLORIDE 0.9% 250 ML IV PRN ×2 (19:45→20:53)
[2020-03-30 20:11] LABS: Hematocrit (blood only) 24.4 % (37-47); Hemoglobin 6.5 g/dL (12.0-16.0); Mean Corpuscular Hemoglobin 18.4 pg (25-34); Mean Corpuscular Hgb Conc 26.6 g/dL (32-36); Mean Corpuscular Volume 68.9 fL (80-100); Mean Platelet Volume 9.8 fL (7.4-10.4); Platelet Count 492 K/uL (130-400); RDW Coefficient of Variation 19.4 % (11.5-14.5); RDW Standard Deviation 48.6 fL (36.4-46.3); Red Blood Count 3.54 M/uL (4.2-5.4)
[2020-03-30 20:13] LABS: INR 2.5 (0.9-1.1); Partial Thromboplastin Ratio 1.3; Partial Thromboplastin Time 36.2 Seconds (21.0-31.0); Prothrombin Time 25.2 Seconds (9.0-12.0)
[2020-03-30 20:25] LABS: Alanine Aminotransferase 173 U/L (12-78); Albumin Level 3.7 gm/dl (3.4-5.0); Aspartate Aminotransferase 95 U/L (15-37); BUN Creatinine Ratio 28.6 (10-20); Blood Urea Nitrogen 32 mg/dl (7-18); Calcium 9.4 mg/dl (8.5-10.1); Carbon Dioxide 21 mmol/L (21-32); Chloride 108 mmol/L (98-107); Creatinine Clr Calc Pharmacy 29.7 ml/min; Est GFR (African American) 52.2; Est GFR (Non-African American) 45.1; Glucose 164 mg/dl (70-99); Magnesium 2.1 mg/dl (1.8-2.4); Potassium 4.5 mmol/L (3.5-5.1); Sodium 138 mmol/L (136-145)
[2020-03-30 20:27] LABS: Basophils % (auto) 1.5 %; Eosinophils # (auto) 0.06 K/uL (0-0.5); Eosinophils % (auto) 0.9 %; Hypochromasia Present; Immature Granulocytes # (auto) 0.01 K/uL (0.00-0.02); Immature Granulocytes % (auto) 0.1 %; Lymphocytes # (auto) 1.13 K/uL (1.2-3.4); Lymphocytes % (auto) 16.6 %; Microcytosis Present; Monocytes # (auto) 1.01 K/uL (0.11-0.59); Monocytes % (auto) 14.9 %; Neutrophils # (auto) 4.49 K/uL (1.4-6.5); Ovalocytes 1+
[2020-03-30 20:36] LABS: Albumin Globulin Ratio 1.1 (0.9-2); Alkaline Phosphatase 63 U/L (45-117); Bilirubin,Total 1.3 mg/dl (0.2-1); Globulin 3.3 gm/dl (2.5-4.0); Troponin I < 0.015 ng/ml (0-0.045)
--- NOTE | 2020-03-30 21:52 | Emergency Department Note ---
Impression & Plan Symptomatic anemia ED Provider Note INFORMANT: Patient ED PROVIDER(S): Sonny Junior MD CHIEF COMPLAINT: Anemia PLAN: Disposition: Admitted Condition: Good MEDICAL DECISION MAKING: Patient presented due to abnormal outpatient labs. She was found to be anemic. This was confirmed revealing a severe anemia with a hemoglobin of 6. The patient was consented for packed red blood cell transfusion. This was initiated. Consultation was made with internal medicine for admission, Dr. Albert Dai. Patient's chemistry panel was rather unremarkable. She does have a slight elevation of her LFTs. ECG showed a paced rhythm. Triage Nursing notes reviewed and agree them. Prior medical records reviewed severe anemia noted on outpatient labs. Vital Signs: reviewed and remarkable for no significant abnormalities Differential diagnosis: Hemolysis, GI bleed, infection, dehydration, metabolic abnormality, hypo/hyperglycemia, electrolyte disturbance, anemia, hypoxia, cardiac sources, intracerebral event, toxicologic, neurologic, as well as other pathologies. Diagnostics interpreted by me: ECG: Twelve-lead ECG reveals a paced rhythm at 64 bpm. There is no obvious ST elevation. No PVCs. Wide QRS consistent with paced rhythm. Cardiac Monitoring: Cardiac monitoring ordered by me: The patient was placed on continuous cardiac monitoring and observed. It revealed a paced rhythm at 65 beats per minute without ectopy or evidence of dysrhythmia. Consultation(s): [facility] [place] hospitalist HPI: The patient is a 84 year old female who presents to the Emergency Room with complaints of abnormal labs. This started today and is due to the fact that she was feeling fatigued. Her primary physician ordered labs and she was found to be severely anemic. The patient also notes the following associated symptoms, excessive tiredness, mild lower extremity swelling. The patient has found no relieving factors. [place] any current pain. Patient states that she is on blood thinners but she is unsure of what kind. Patient denies any headache, chest pain, fevers chills. She does note some black stool. She is having difficulty answering any detailed questions therefore the history is limited. ROS: See above HPI for pertinent positives & negatives. ROS limited secondary to inability to recall and mild confusion. PAST MEDICAL HISTORY:See Below A. fib, hypertension, diabetes PAST SURGICAL HISTORY:See Below, pacemaker FAMILY HISTORY:See Below SOCIAL HISTORY:See Below, lives alone HOME MEDICATIONS:See Below ALLERGIES:See Below VITALS:See Below PHYSICAL EXAMINATION: GENERAL: Awake, tired appearing-appearing, in no distress HENT: Normocephalic, atraumatic. Oropharynx unremarkable. EYES: Pale conjunctiva. Sclera non-icteric. NECK: Inspection normal. Non-tender. Supple. No nuchal rigidity. FROM. No masses. RESPIRATORY: Clear to auscultation. No wheezes. No rales. Normal respiratory effort. CARDIAC: Normal rate. Normal rhythm. No murmurs. No rubs. Extremities warm and well perfused. Pulses equal. No JVD. GI: Soft, non-distended. No tenderness to palpation. No rebound or guarding. No masses. RECTAL: Deferred. MUSCULOSKELETAL: Atraumatic. Chest examination reveals no tenderness. The back is symmetrical on inspection without obvious abnormality. There is no CVA tenderness to palpation. No joint edema. LOWER EXTREMITIES: Calves are equal size bilaterally and non-tender. 1+ edema. No discoloration. NEURO: Normal sensorium. No sensory or motor deficits noted. SKIN: No rash or jaundice noted. ED COURSE: Critical Care: I have personally spent greater than 31 minutes of critical care time in the direct management of this patient. This includes bedside care, interpretation of diagnostic studies, and testing, discussion with consultants, patient, and other required patient management activities. These minutes are in excess of all separately billable procedures. Sonny Junior MD Past Med/Surg History Medical History (Updated 03/30/20 @ 21:49 by Sonny Junior MD) Atrial fibrillation Cancer BREAST-RT (RADIATION) UTERINE CANCER Cardiac pacemaker in situ Confirmed ischemic stroke Coronary artery disease S/p stent x2 RCA (1993 and 2002). Followed by cardiology. Medicallay managed with clopidogrel + statin + BB + ACEi. No ASA as on AC (rivaroxaban). Dementia Diabetes mellitus, type II Dizziness Dysphagia GERD (gastroesophageal reflux disease) Hearing loss Heart failure with reduced ejection fraction Herpes, genital History of endometrial cancer Diagnosed w/ stage 1A grade 1 endometrial cancer in 05/15. s/p TLH/BSO/nodes. No further treatment at this time and is followed q6 months by heme/onc and front desk admin Hyperlipidemia Hypertension Insomnia Macular degeneration Osteoporosis DEXA scan 2009 showing minimum T score -2.7 involving forearm. Treated with calcium and vitamin D. Did not tolerate oral bisphosphonates. Declined Reclast in the past because of potential side effects. 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 Monitored by cardiology. Transient ischemic attack (TIA) SEVERAL TIA'S IN PAST (LAST EPISODE DECEMBER 2017) Vitamin D deficiency Surgical History History of appendectomy History of cardiac catheterization History of colonoscopy History of dilatation and curettage History of hysterectomy with bilateral oophorectomy History of lumpectomy History of ovarian cystectomy Family History (Updated 01/20/20 @ 13:54 by Clarissa Collazo) Mother Diabetes Stroke Brother Cancer Parkinson disease Stroke Diabetes Sister Breast cancer Hypertension Diabetes Stroke Father Kidney disease Coronary heart disease Denies family history of Ovarian cancer Prostate cancer Lung cancer Colorectal cancer Social History (Updated 01/20/20 @ 13:54 by Clarissa Collazo) Smoking Status: Former smoker Tobacco Type: Cigarettes Second Hand Exposure: No; Hx Alcohol Use: No Hx Substance Use: No Preferred Language: Thai Communication Ability: Effective Visual Impairment: Limited Hearing Ability: Hard of Hearing Partner Required: No Beliefs That Will Affect Care: None marital status: Single Current Living Situation: Alone current occupational status: retired Feels Safe at Home: Yes Safety Concerns: Feels Safe At This Time Childhood Exposure to Second-Hand Smoke: Yes caffeine: Yes Dental Care, Regularly: Yes Physical Activity Frequency: Does not Exercise Seatbelt Use: always Sunscreen Use: Yes Allergies Allergies Allergy/AdvReac Type Severity Reaction Status Date / Time diltiazem Allergy Severe HIVES Verified 03/30/20 13:48 alendronate sodium Allergy Mild bad Verified 03/30/20 13:48 stomach pains cholestyramine Allergy Mild ? REMEMBER Verified 03/30/20 13:48 simvastatin Allergy Mild Headache Verified 03/30/20 13:48 ibandronate sodium Allergy Verified 03/30/20 13:48 [From Boniva] sucrose [From Questran] Allergy Verified 03/30/20 13:48 ezetimibe AdvReac Mild Headache Verified 03/30/20 13:48 niacin AdvReac Mild SICK TO Verified 03/30/20 13:48 STOMACH risedronate sodium AdvReac Mild STOMACH Verified 03/30/20 13:48 PAINS aspirin [From Aggrenox] AdvReac Headache Verified 03/30/20 13:48 dipyridamole [From Aggrenox] AdvReac Headache Verified 03/30/20 13:48 Home Meds Home Medications Medication Instructions Recorded Confirmed cholecalciferol (vitamin D3) 1,000 unit PO QDL 06/23/18 03/30/20 [Vitamin D3] coenzyme Q10 [Co Q-10] 100 mg PO QDL 06/23/18 03/30/20 [id number] 1 tab PO QDL 07/16/18 03/30/20 [Macular Vitamin] acetaminophen [Tylenol] 650 mg PO Q6H PRN 08/05/18 03/30/20 lisinopril 10 mg PO DAILY 03/30/20 03/30/20 Previous Rx's Medication Instructions Recorded potassium chloride 20 mEq 20 meq PO DAILY #90 tab 08/04/19 tablet,extended release(part/cryst) digoxin 125 mcg (0.125 mg) tablet 125 mcg PO QDL #90 tab 09/08/19 atorvastatin 80 mg tablet 80 mg PO QDL #90 tab 10/15/19 clopidogrel 75 mg tablet 75 mg PO QDL #90 tab 11/17/19 furosemide 20 mg tablet 20 mg PO DAILY #90 tab 12/01/19 metoprolol succinate 100 mg 150 mg PO HS #135 tab 12/04/19 tablet,extended release 24 hr rivaroxaban 20 mg tablet 20 mg PO HS #90 tab 01/05/20 Results & Data (ED) Vital Signs Vital Signs - 24 hr 03/30/20 19:51 03/30/20 20:26 03/30/20 21:15 Temperature 37.3 C 36.5 C Temperature Source Oral Oral Pulse Rate 60 62 Pulse Rate [Right Finger] 64 Pulse Rhythm Regular Pulse Strength Normal Respiratory Rate 16 16 18 Respiratory Depth Normal Blood Pressure 119/42 L 116/49 L Blood Pressure [Right Arm] 108/50 L Blood Pressure Mean 67 71 Blood Pressure Mean [Right Arm] 69 Blood Pressure Position Lying Sitting Blood Pressure Position [Right Arm] Lying Pulse Oximetry 100 98 93 Oxygen Delivery Method Room Air Room Air Sepsis Recent Fever Within 48 Hours No Sepsis New/Unexplained Change in Mental Status No Sepsis Action Taken by Nursing No Action Required 03/30/20 21:21 03/30/20 21:25 03/30/20 21:30 Temperature 36.7 C 37.9 C H 36.5 C Temperature Source Oral Oral Oral Pulse Rate 60 69 63 Pulse Rate [Right Finger] Pulse Rhythm Pulse Strength Respiratory Rate 17 17 18 Respiratory Depth Blood Pressure 123/56 L 111/52 L 112/62 Blood Pressure [Right Arm] Blood Pressure Mean 78 71 78 Blood Pressure Mean [Right Arm] Blood Pressure Position Sitting Blood Pressure Position [Right Arm] Pulse Oximetry 99 98 98 Oxygen Delivery Method Sepsis Recent Fever Within 48 Hours Sepsis New/Unexplained Change in Mental Status Sepsis Action Taken by Nursing 03/30/20 21:45 03/30/20 21:51 03/30/20 22:15 Temperature 36.5 C 36.6 C Temperature Source Oral Oral Pulse Rate 61 63 Pulse Rate [Right Finger] 63 Pulse Rhythm Pulse Strength Respiratory Rate 18 16 16 Respiratory Depth Normal Blood Pressure 126/83 112/49 L Blood Pressure [Right Arm] 126/63 Blood Pressure Mean 97 70 Blood Pressure Mean [Right Arm] 84 Blood Pressure Position Lying Lying Blood Pressure Position [Right Arm] Lying Pulse Oximetry 98 98 100 Oxygen Delivery Method Room Air Sepsis Recent Fever Within 48 Hours Sepsis New/Unexplained Change in Mental Status Sepsis Action Taken by Nursing Laboratory Data Result diagrams: 03/30/20 19:52 03/30/20 19:52 Lab Results 03/30/20 03/30/20 03/30/20 Range/Units 19:52 19:52 19:52 WBC 6.80 (4.8-10.8) K/uL RBC 3.54 L (4.2-5.4) M/uL Hgb 6.5 L* (12.0-16.0) g/dL Hct 24.4 L (37-47) % MCV 68.9 L (80-100) fL MCH 18.4 L (25-34) pg MCHC 26.6 L (32-36) g/dL RDW Std Deviation 48.6 H (36.4-46.3) fL RDW Coeff of Grace 19.4 H (11.5-14.5) % Plt Count 492 H (130-400) K/uL MPV 9.8 (7.4-10.4) fL Immature Gran % (Auto) 0.1 % Neut % (Auto) 66.0 % Lymph % (Auto) 16.6 % Wayne % (Auto) 14.9 % Eos % (Auto) 0.9 % Baso % (Auto) 1.5 % Neut # (Auto) 4.49 (1.4-6.5) K/uL Lymph # (Auto) 1.13 L (1.2-3.4) K/uL Wayne # (Auto) 1.01 H (0.11-0.59) K/uL Eos # (Auto) 0.06 (0-0.5) K/uL Baso # (Auto) 0.10 (0-0.2) K/uL Immature Gran # (Auto) 0.01 (0.00-0.02) K/uL Absolute Nucleated RBC 0.20 H (0-0) K/uL Nucleated RBC % (auto) 3.0 % Hypersegmented Neuts 1+ Hypochromasia Present Microcytosis Present Ovalocytes 1+ PT 25.2 H (9.0-12.0) Seconds INR 2.5 H (0.9-1.1) APTT 36.2 H (21.0-31.0) Seconds PTT Ratio 1.3 Sodium 138 (136-145) mmol/L Potassium 4.5 (3.5-5.1) mmol/L Chloride 108 H (98-107) mmol/L Carbon Dioxide 21 (21-32) mmol/L Anion Gap 9.0 (3-11) BUN 32 H (7-18) mg/dl Creatinine 1.12 (0.6-1.2) mg/dl Est Cr Clr Drug Dosing 29.7 ml/min Est GFR ( Amer) 52.2 Est GFR (Non-Af Amer) 45.1 BUN/Creatinine Ratio 28.6 H (10-20) Glucose 164 H (70-99) mg/dl Calcium 9.4 (8.5-10.1) mg/dl Magnesium 2.1 (1.8-2.4) mg/dl Total Bilirubin 1.3 H (0.2-1) mg/dl AST 95 H (15-37) U/L ALT 173 H (12-78) U/L Alkaline Phosphatase 63 (45-117) U/L Troponin I < 0.015 (0-0.045) ng/ml Total Protein 7.0 (6.4-8.2) gm/dl Albumin 3.7 (3.4-5.0) gm/dl Globulin 3.3 (2.5-4.0) gm/dl Albumin/Globulin Ratio 1.1 (0.9-2) TSH 2.670 (0.300-4.500) uIu/ml Blood Type Antibody Screen Crossmatch 03/30/20 Range/Units 19:52 WBC (4.8-10.8) K/uL RBC (4.2-5.4) M/uL Hgb (12.0-16.0) g/dL Hct (37-47) % MCV (80-100) fL MCH (25-34) pg MCHC (32-36) g/dL RDW Std Deviation (36.4-46.3) fL RDW Coeff of Grace (11.5-14.5) % Plt Count (130-400) K/uL MPV (7.4-10.4) fL Immature Gran % (Auto) % Neut % (Auto) % Lymph % (Auto) % Wayne % (Auto) % Eos % (Auto) % Baso % (Auto) % Neut # (Auto) (1.4-6.5) K/uL Lymph # (Auto) (1.2-3.4) K/uL Wayne # (Auto) (0.11-0.59) K/uL Eos # (Auto) (0-0.5) K/uL Baso # (Auto) (0-0.2) K/uL Immature Gran # (Auto) (0.00-0.02) K/uL Absolute Nucleated RBC (0-0) K/uL Nucleated RBC % (auto) % Hypersegmented Neuts Hypochromasia Microcytosis Ovalocytes PT (9.0-12.0) Seconds INR (0.9-1.1) APTT (21.0-31.0) Seconds PTT Ratio Sodium (136-145) mmol/L Potassium (3.5-5.1) mmol/L Chloride (98-107) mmol/L Carbon Dioxide (21-32) mmol/L Anion Gap (3-11) BUN (7-18) mg/dl Creatinine (0.6-1.2) mg/dl Est Cr Clr Drug Dosing ml/min Est GFR ( Amer) Est GFR (Non-Af Amer) BUN/Creatinine Ratio (10-20) Glucose (70-99) mg/dl Calcium (8.5-10.1) mg/dl Magnesium (1.8-2.4) mg/dl Total Bilirubin (0.2-1) mg/dl AST (15-37) U/L ALT (12-78) U/L Alkaline Phosphatase (45-117) U/L Troponin I (0-0.045) ng/ml Total Protein (6.4-8.2) gm/dl Albumin (3.4-5.0) gm/dl Globulin (2.5-4.0) gm/dl Albumin/Globulin Ratio (0.9-2) TSH (0.300-4.500) uIu/ml Blood Type A Positive Antibody Screen NEGATIVE Crossmatch See Detail Discharge Plan Visit Data Chief Complaint: Abnormal Labs/Diagnostic Testing Stated Complaint: ABNORMAL LAB, TACHYCARDIA, SENT BY PCP ED Provider: Sonny Junior Discharge Problem: Symptomatic anemia Patient Disposition: Admitted As Inpatient Discharge Instructions Interventions: ED Discharge Assessment Last Done: 03/30/20 23:07
--- NOTE | 2020-03-30 22:24 | History & Physical Report ---
Date of Service March 30, 2020 Assessment & Plan (1) Symptomatic anemia: Hemoglobin was 6.1 in the outpatient labs, and confirmed a 6.5 in the ED tonight, with hypochromic microcytic indices N.p.o. except essential medications. Protonix 40 mg IV twice daily Transfused 2 units PRBCs in ED tonight. Repeat laboratories in a.m. Consult gastroenterology. Present on Admission?: Yes (2) Anticoagulant long-term use: CAD/hypertension/HFrEF/atrial fibrillation/long-term anticoagulation- Hold Xarelto due to anemia noted above. Hold clopidogrel, coenzyme Q 10, furosemide, potassium chloride and lisinopril. Continue Metoprolol succinate 150 mg at bedtime and digoxin 125 mcg daily. Consult her Media Analytics Manager Dr. Villatoro Present on Admission?: Yes (3) GERD (gastroesophageal reflux disease): Protonix IV as noted above Present on Admission?: Yes (4) Coronary artery disease: Present on Admission?: Yes (5) Heart failure with reduced ejection fraction: Present on Admission?: Yes (6) Hypertension: Present on Admission?: Yes (7) Atrial fibrillation: Present on Admission?: Yes History of Present Illness Chief Complaint: The patient was referred to the emergency department for further assessment and treatment after having outpatient laboratories revealed hemoglobin of 6.1. Primary Care Provider: Pete Payne DO The patient is an 84-year-old female with a past medical history including GERD, vitamin D deficiency, dysphagia, ischemic stroke, CAD, HFrEF, hypertension, atrial fibrillation, tachybradycardia syndrome, dementia, diabetes mellitus type 2, endometrial cancer, hyperlipidemia, cardiac pacemaker and insomnia. The patient had gone to her PCP earlier today, due to persistent fatigue and dyspnea on exertion, had laboratories performed, and received a phone call from their on-call physician that hemoglobin was 6.1 and she should go to the emergency department. The patient denies any bright red blood per rectum. She reports that she did take some Pepto-Bismol, and whenever she takes that her stool is black, otherwise has had not any change in stool character over the past few months. She denies any NSAID use. She does take Xarelto on a daily basis. Allergies Allergy/AdvReac Type Severity Reaction Status Date / Time diltiazem Allergy Severe HIVES Verified 03/30/20 13:48 alendronate sodium Allergy Mild bad Verified 03/30/20 13:48 stomach pains cholestyramine Allergy Mild ? REMEMBER Verified 03/30/20 13:48 simvastatin Allergy Mild Headache Verified 03/30/20 13:48 ibandronate sodium Allergy Verified 03/30/20 13:48 [From Boniva] sucrose [From Questran] Allergy Verified 03/30/20 13:48 ezetimibe AdvReac Mild Headache Verified 03/30/20 13:48 niacin AdvReac Mild SICK TO Verified 03/30/20 13:48 STOMACH risedronate sodium AdvReac Mild STOMACH Verified 03/30/20 13:48 PAINS aspirin [From Aggrenox] AdvReac Headache Verified 03/30/20 13:48 dipyridamole [From Aggrenox] AdvReac Headache Verified 03/30/20 13:48 Home Medications Home Medications Medication Instructions Recorded Confirmed Type cholecalciferol (vitamin D3) 1,000 unit PO QDL 06/23/18 03/30/20 History [Vitamin D3] coenzyme Q10 [Co Q-10] 100 mg PO QDL 06/23/18 03/30/20 History kgtgkcme-aws-AN-lut-zeaxanth 1 tab PO QDL 07/16/18 03/30/20 History [Macular Vitamin] acetaminophen [Tylenol] 650 mg PO Q6H PRN 08/05/18 03/30/20 History potassium chloride 20 mEq 20 meq PO DAILY #90 tab 08/04/19 03/30/20 Rx tablet,extended release(part/cryst) digoxin 125 mcg (0.125 mg) tablet 125 mcg PO QDL #90 tab 09/08/19 03/30/20 Rx atorvastatin 80 mg tablet 80 mg PO QDL #90 tab 10/15/19 03/30/20 Rx clopidogrel 75 mg tablet 75 mg PO QDL #90 tab 11/17/19 03/30/20 Rx furosemide 20 mg tablet 20 mg PO DAILY #90 tab 12/01/19 03/30/20 Rx metoprolol succinate 100 mg 150 mg PO HS #135 tab 12/04/19 03/30/20 Rx tablet,extended release 24 hr rivaroxaban 20 mg tablet 20 mg PO HS #90 tab 01/05/20 03/30/20 Rx lisinopril 10 mg PO DAILY 09/01/20 09/01/20 History Past Med/Surg History Medical History (Updated 03/30/20 @ 21:49 by Sonny Junior MD) Atrial fibrillation Cancer BREAST-RT (RADIATION) UTERINE CANCER Cardiac pacemaker in situ Confirmed ischemic stroke Coronary artery disease S/p stent x2 RCA (1993 and 2002). Followed by cardiology. Medicallay managed with clopidogrel + statin + BB + ACEi. No ASA as on AC (rivaroxaban). Dementia Diabetes mellitus, type II Dizziness Dysphagia GERD (gastroesophageal reflux disease) Hearing loss Heart failure with reduced ejection fraction Herpes, genital History of endometrial cancer Diagnosed w/ stage 1A grade 1 endometrial cancer in 05/15. s/p TLH/BSO/nodes. No further treatment at this time and is followed q6 months by heme/onc and couture alterations dressmaker Hyperlipidemia Hypertension Insomnia Macular degeneration Osteoporosis DEXA scan 2009 showing minimum T score -2.7 involving forearm. Treated with calcium and vitamin D. Did not tolerate oral bisphosphonates. Declined Reclast in the past because of potential side effects. 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 Monitored by cardiology. Transient ischemic attack (TIA) SEVERAL TIA'S IN PAST (LAST EPISODE DECEMBER 2017) Vitamin D deficiency Surgical History History of appendectomy History of cardiac catheterization History of colonoscopy History of dilatation and curettage History of hysterectomy with bilateral oophorectomy History of lumpectomy History of ovarian cystectomy Family History (Updated 01/20/20 @ 13:54 by Clarissa Collazo) Mother Diabetes Stroke Brother Cancer Parkinson disease Stroke Diabetes Sister Breast cancer Hypertension Diabetes Stroke Father Kidney disease Coronary heart disease Denies family history of Ovarian cancer Prostate cancer Lung cancer Colorectal cancer Social History (Updated 01/20/20 @ 13:54 by Clarissa Collazo) Smoking Status: Former smoker Tobacco Type: Cigarettes Second Hand Exposure: No; Hx Alcohol Use: No Hx Substance Use: No Preferred Language: Portuguese Communication Ability: Effective Visual Impairment: Limited Hearing Ability: Hard of Hearing Surgical Resident Required: No Beliefs That Will Affect Care: None marital status: Single Current Living Situation: Alone current occupational status: retired Feels Safe at Home: Yes Safety Concerns: Feels Safe At This Time Childhood Exposure to Second-Hand Smoke: Yes caffeine: Yes Dental Care, Regularly: Yes Physical Activity Frequency: Does not Exercise Seatbelt Use: always Sunscreen Use: Yes Review of Systems Review of Systems: The patient denies chest pain, palpitations, cough, lower extremity swelling, sore throat, fevers, chills, sweats, nausea, vomiting, diarrhea , constipation, abdominal pain, pelvic pain, blood in urine or stool, dysuria, urinary frequency or urgency, headache, memory loss, loss of consciousness, rash, imbalance, focal weakness, numbness or tingling in arms or legs, generalized arthralgias or myalgias, back or neck pain, or night sweats. The review of systems is otherwise negative other than for that already noted above, and at least 10 systems have been reviewed. Physical Exam Physical Exam: The patient is awake, alert and oriented 3, well developed and well nourished, normocephalic and atraumatic, lying in bed and in no acute distress. HEENT--PERRL, EOMI, mucous membranes and oropharynx normal. Neck--supple. No JVD. No bruits. Thyroid normal, trachea midline, no adenopathy. Heart--normal S1 and S2. No murmurs, rubs or gallops. Lungs--clear bilaterally, no respiratory distress, no accessory muscle use. Abdomen--normal bowel sounds and soft. Nontender. Nondistended. Extremities--no cyanosis or clubbing. No edema. Dermatologic--normal skin turgor, normal color, no abnormal lymph nodes, no rash. Neurologic--cranial nerves II through XII grossly intact. Rheumatologic--normal range of motion. Psychiatric--normal affect. Results & Data Results & Data ([facility]) Vital Signs (Past 12 Hours) Vital Signs Temp Pulse Pulse Resp BP BP Pulse Ox 03/30/20 22:15 97.9 F 63 16 112/49 L 100 03/30/20 21:51 63 16 126/63 98 03/30/20 21:45 97.7 F 61 18 126/83 98 03/30/20 21:30 97.7 F 63 18 112/62 98 03/30/20 21:25 100.2 F H 69 17 111/52 L 98 03/30/20 21:21 98.1 F 60 17 123/56 L 99 03/30/20 21:15 97.7 F 62 18 116/49 L 93 03/30/20 20:26 64 16 108/50 L 98 03/30/20 19:51 99.1 F 60 16 119/42 L 100 Laboratory Results Laboratory Results WBC 6.80 K/uL (4.8-10.8) 03/30/20 19:52 RBC 3.54 M/uL (4.2-5.4) L 03/30/20 19:52 Hgb 6.5 g/dL (12.0-16.0) L* 03/30/20 19:52 Hct 24.4 % (37-47) L 03/30/20 19:52 MCV 68.9 fL (80-100) L 03/30/20 19:52 MCH 18.4 pg (25-34) L 03/30/20 19:52 MCHC 26.6 g/dL (32-36) L 03/30/20 19:52 RDW Std Deviation 48.6 fL (36.4-46.3) H 03/30/20 19:52 RDW Coeff of Grace 19.4 % (11.5-14.5) H 03/30/20 19:52 Plt Count 492 K/uL (130-400) H 03/30/20 19:52 MPV 9.8 fL (7.4-10.4) 03/30/20 19:52 Immature Gran % (Auto) 0.1 % 03/30/20 19:52 Neut % (Auto) 66.0 % 03/30/20 19:52 Lymph % (Auto) 16.6 % 03/30/20 19:52 [place] % (Auto) 14.9 % 03/30/20 19:52 Eos % (Auto) 0.9 % 03/30/20 19:52 Baso % (Auto) 1.5 % 03/30/20 19:52 Neut # (Auto) 4.49 K/uL (1.4-6.5) 03/30/20 19:52 Lymph # (Auto) 1.13 K/uL (1.2-3.4) L 03/30/20 19:52 [place] # (Auto) 1.01 K/uL (0.11-0.59) H 03/30/20 19:52 Eos # (Auto) 0.06 K/uL (0-0.5) 03/30/20 19:52 Baso # (Auto) 0.10 K/uL (0-0.2) 03/30/20 19:52 Immature Gran # (Auto) 0.01 K/uL (0.00-0.02) 03/30/20 19:52 Absolute Nucleated RBC 0.20 K/uL (0-0) H 03/30/20 19:52 Nucleated RBC % (auto) 3.0 % 03/30/20 19:52 Hypersegmented Neuts 1+ 03/30/20 19:52 Hypochromasia Present 03/30/20 19:52 Microcytosis Present 03/30/20 19:52 Ovalocytes 1+ 03/30/20 19:52 PT 25.2 Seconds (9.0-12.0) H 03/30/20 19:52 INR 2.5 (0.9-1.1) H 03/30/20 19:52 APTT 36.2 Seconds (21.0-31.0) H 03/30/20 19:52 PTT Ratio 1.3 03/30/20 19:52 Sodium 138 mmol/L (136-145) 03/30/20 19:52 Potassium 4.5 mmol/L (3.5-5.1) 03/30/20 19:52 Chloride 108 mmol/L (98-107) H 03/30/20 19:52 Carbon Dioxide 21 mmol/L (21-32) 03/30/20 19:52 Anion Gap 9.0 (3-11) 03/30/20 19:52 BUN 32 mg/dl (7-18) H 03/30/20 19:52 Creatinine 1.12 mg/dl (0.6-1.2) 03/30/20 19:52 Est Cr Clr Drug Dosing 29.7 ml/min 03/30/20 19:52 Est GFR ( Amer) 52.2 03/30/20 19:52 Est GFR (Non-Af Amer) 45.1 03/30/20 19:52 BUN/Creatinine Ratio 28.6 (10-20) H 03/30/20 19:52 Glucose 164 mg/dl (70-99) H 03/30/20 19:52 Calcium 9.4 mg/dl (8.5-10.1) 03/30/20 19:52 Magnesium 2.1 mg/dl (1.8-2.4) 03/30/20 19:52 Total Bilirubin 1.3 mg/dl (0.2-1) H 03/30/20 19:52 AST 95 U/L (15-37) H 03/30/20 19:52 ALT 173 U/L (12-78) H 03/30/20 19:52 Alkaline Phosphatase 63 U/L (45-117) 03/30/20 19:52 Troponin I < 0.015 ng/ml (0-0.045) 03/30/20 19:52 Total Protein 7.0 gm/dl (6.4-8.2) 03/30/20 19:52 Albumin 3.7 gm/dl (3.4-5.0) 03/30/20 19:52 Globulin 3.3 gm/dl (2.5-4.0) 03/30/20 19:52 Albumin/Globulin Ratio 1.1 (0.9-2) 03/30/20 19:52 TSH 2.670 uIu/ml (0.300-4.500) 03/30/20 19:52 COVID-19 Eval Order Covid19 Done at [facility] 03/31/20 00:17 COVID-19 PCR NEGATIVE (Negative) 03/31/20 00:17 Blood Type A Positive 03/30/20 19:52 Antibody Screen NEGATIVE 03/30/20 19:52 Crossmatch See Detail 03/30/20 19:52 Diagnostic Findings [facility] [place], [place] [phone] XRay Report Patient: SARIKA DUNCAN LAdmit Date: 03/30/20 MR#: [id number]: [address] Acct ID:[id number]: Date: [address] [place] [address] Zip: [place] [address] Age: 84Location: RAD1 Sex: FRoom/Bed: Att Phy: Kirsten Moya PA-CDiagnosis: R42,R06.00 Emilie Phy: Pete Payne, DOService Date: 03/30/20 Fam Phy:Interpreting Phy: Tom Jenkins MD Admit Phy: Ordering Phy: Kirsten Moya PA-C cc: ~ XR chest 2V PA/lateral CLINICAL HISTORY: R06.00 - Dyspnea, unspecified COMPARISON STUDY: 01/01/2018 FINDINGS: The heart is enlarged. There is a left subclavian central venous pacemaker. There is a thoracolumbar scoliosis. There is no failure. There is no focal pulmonary consolidation. There are no significant pleural effusions.[ IMPRESSION: Cardiomegaly. No acute findings. ACT 112: Negative or not required by law. Electronically signed by: Tom Jenkins M.D. 03/30/2020 3:36 PM Dictated: 03/30/20 1536 Transcribed: 03/30/20 1536 Code Status & VTE Plan Code Status Full code VTE Prophylaxis Plan VTE Prophylaxis will be ordered: Yes PG Care Time/CCT Total # of Minutes Spent Total Time Spent with Patient: Total time spent is greater than 50% in coordination of care (as documented) at patient's floor/unit and/or counseling patient: Coding Level of Care Code 74757 Initial Inpt Care Lvl 3 Diagnoses Symptomatic anemia D64.9 Anticoagulant long-term use Z79.01 GERD (gastroesophageal reflux disease) K21.9 Coronary artery disease I25.10 Heart failure with reduced ejection fraction I50.20 Hypertension I10 Atrial fibrillation I48.91
[2020-03-30] MEDS ORDERED: ONDANSETRON INJ 2 MG/ML 2 ML VIAL IV PRN (23:37)
[2020-03-30] MEDS ORDERED: ACETAMINOPHEN 325 MG TAB PO PRN (23:37)
[2020-03-31] MEDS: PANTOprazole 40 MG in SYRINGE 0 ML IV SCH ×3 (00:37→20:53)
[2020-03-31] MEDS: NSS + 20MEQ KCL 20 MEQ/1,000 ML BAG IV SCH ×2 (02:45→17:09)
[2020-03-31 06:33] LABS: Basophils # (auto) 0.06 K/uL (0-0.2); Basophils % (auto) 0.9 %; Eosinophils # (auto) 0.13 K/uL (0-0.5); Eosinophils % (auto) 1.9 %; Hematocrit (blood only) 29.2 % (37-47); Hemoglobin 8.5 g/dL (12.0-16.0); Immature Granulocytes # (auto) 0.01 K/uL (0.00-0.02); Immature Granulocytes % (auto) 0.1 %; Lymphocytes # (auto) 1.51 K/uL (1.2-3.4); Lymphocytes % (auto) 22.6 %; Mean Corpuscular Hgb Conc 29.1 g/dL (32-36); Mean Corpuscular Volume 72.3 fL (80-100); Mean Platelet Volume 9.8 fL (7.4-10.4); Monocytes # (auto) 1.13 K/uL (0.11-0.59); Monocytes % (auto) 16.9 %; Neutrophils # (auto) 3.84 K/uL (1.4-6.5); Neutrophils % (auto) 57.6 %; Nucleated RBC % (auto) 1.5 %; Platelet Count 408 K/uL (130-400); RDW Coefficient of Variation 22.8 % (11.5-14.5); RDW Standard Deviation 59.5 fL (36.4-46.3); Red Blood Count 4.04 M/uL (4.2-5.4); White Blood Count 6.68 K/uL (4.8-10.8)
[2020-03-31 06:44] LABS: INR 1.7 (0.9-1.1); Partial Thromboplastin Ratio 1.2; Partial Thromboplastin Time 32.7 Seconds (21.0-31.0); Prothrombin Time 17.5 Seconds (9.0-12.0)
[2020-03-31 06:58] LABS: Albumin Level 3.2 gm/dl (3.4-5.0); BUN Creatinine Ratio 33.7 (10-20); Calcium 9.4 mg/dl (8.5-10.1); Creatinine Clr Calc Pharmacy 35.3 ml/min; Est GFR (Non-African American) 59.5; Potassium 4.3 mmol/L (3.5-5.1)
[2020-03-31 07:07] LABS: Albumin Globulin Ratio 1.2 (0.9-2); Bilirubin,Total 2.2 mg/dl (0.2-1); Globulin 2.7 gm/dl (2.5-4.0); Total Protein 5.9 gm/dl (6.4-8.2)
[2020-03-31 07:22] LABS: Anisocytosis Present; Hypochromasia Present; Microcytosis Present; Poikilocytosis Present
--- NOTE | 2020-03-31 08:27 | Gastrointestinal Consultation ---
Date of Consultation March 31, 2020 Assessment & Plan (1) Symptomatic anemia: Patient admitted due to symptomatic anemia Hgb 6.5/Hct 24.4 - received 2 units PRBC. Hgb 8.5/Hct 29.2 after transfusion. Continue IV Protonix. Continue NPO and hold Plavix and Xarelto. Plan is EGD today by Dr. Lainez - patient agreeable, risks reviewed. Please refer to supervising physician addendum for further recommendations. History of Present Illness Attending Physician: Johann George DO History of Present Illness The patient is an 84-year-old female with a past medical history including GERD, vitamin D deficiency, dysphagia, ischemic stroke, CAD, HFrEF, hypertension, atrial fibrillation, tachybradycardia syndrome, dementia, diabetes mellitus type 2, endometrial cancer, hyperlipidemia, cardiac pacemaker and insomnia. Patient presented to the ED with significant anemia (Hgb 6.5, Hct 24.4) after PCP appointment due to persistent fatigue and dyspnea on exertion. She was subsequently admitted, started on IV Protonix, received 2 units PRBC, NPO, and hold Xarelto and Plavix. On exam/interview today, the patient denies any bright red blood per rectum. She reports that she did take some Pepto-Bismol, and whenever she takes that her stool is black, otherwise has had not any change in stool character over the past few months. She denies any NSAID use. She does take Xarelto and Plavix on a daily basis. She reports that she has had some abdominal pain and nausea over the last 1 week which prompted the Pepto Bismol use. Denies abdominal pain, nausea, vomiting, diarrhea this morning. She reports + flatus this morning. MIld confusion, reorients easily, requesting a glass of water. She is unmarried and lives alone. She has no children. She has a sister and [id number] that live in [place]. She was treated for stage IA grade 1 endometrial cancer in April 2017. Had TLH/BSO/lymph node removal. No further treatment at this time and is followed every 6 months by Oncology and Gynecology. Allergies Allergy/AdvReac Type Severity Reaction Status Date / Time diltiazem Allergy Severe HIVES Verified 03/30/20 13:48 alendronate sodium Allergy Mild bad Verified 03/30/20 13:48 stomach pains cholestyramine Allergy Mild ? REMEMBER Verified 03/30/20 13:48 simvastatin Allergy Mild Headache Verified 03/30/20 13:48 ibandronate sodium Allergy Verified 03/30/20 13:48 [From Boniva] sucrose [From Questran] Allergy Verified 03/30/20 13:48 ezetimibe AdvReac Mild Headache Verified 03/30/20 13:48 niacin AdvReac Mild SICK TO Verified 03/30/20 13:48 STOMACH risedronate sodium AdvReac Mild STOMACH Verified 03/30/20 13:48 PAINS aspirin [From Aggrenox] AdvReac Headache Verified 03/30/20 13:48 dipyridamole [From Aggrenox] AdvReac Headache Verified 03/30/20 13:48 Home Medications Home Medications Medication Instructions Recorded Confirmed Type cholecalciferol (vitamin D3) 1,000 unit PO QDL 06/23/18 03/30/20 History [Vitamin D3] coenzyme Q10 [Co Q-10] 100 mg PO QDL 06/23/18 03/30/20 History wuhlopnl-jwj-HI-lut-zeaxanth 1 tab PO QDL 07/16/18 03/30/20 History [Macular Vitamin] acetaminophen [Tylenol] 650 mg PO Q6H PRN 08/05/18 03/30/20 History potassium chloride 20 mEq 20 meq PO DAILY #90 tab 08/04/19 03/30/20 Rx tablet,extended release(part/cryst) digoxin 125 mcg (0.125 mg) tablet 125 mcg PO QDL #90 tab 09/08/19 03/30/20 Rx atorvastatin 80 mg tablet 80 mg PO QDL #90 tab 10/15/19 03/30/20 Rx clopidogrel 75 mg tablet 75 mg PO QDL #90 tab 11/17/19 03/30/20 Rx furosemide 20 mg tablet 20 mg PO DAILY #90 tab 12/01/19 03/30/20 Rx metoprolol succinate 100 mg 150 mg PO HS #135 tab 12/04/19 03/30/20 Rx tablet,extended release 24 hr rivaroxaban 20 mg tablet 20 mg PO HS #90 tab 01/05/20 03/30/20 Rx lisinopril 10 mg PO DAILY 03/30/20 03/30/20 History Patient History Medical History (Updated 03/30/20 @ 21:49 by Sonny Junior MD) Atrial fibrillation Cancer BREAST-RT (RADIATION) UTERINE CANCER Cardiac pacemaker in situ Confirmed ischemic stroke Coronary artery disease S/p stent x2 RCA (1993 and 2002). Followed by cardiology. Medicallay managed with clopidogrel + statin + BB + ACEi. No ASA as on AC (rivaroxaban). Dementia Diabetes mellitus, type II Dizziness Dysphagia GERD (gastroesophageal reflux disease) Hearing loss Heart failure with reduced ejection fraction Herpes, genital History of endometrial cancer Diagnosed w/ stage 1A grade 1 endometrial cancer in 05/15. s/p TLH/BSO/nodes. No further treatment at this time and is followed q6 months by heme/onc and nurse obgyn Hyperlipidemia Hypertension Insomnia Macular degeneration Osteoporosis DEXA scan 2009 showing minimum T score -2.7 involving forearm. Treated with calcium and vitamin D. Did not tolerate oral bisphosphonates. Declined Reclast in the past because of potential side effects. 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 Monitored by cardiology. Transient ischemic attack (TIA) SEVERAL TIA'S IN PAST (LAST EPISODE DECEMBER 2017) Vitamin D deficiency Surgical History History of appendectomy History of cardiac catheterization History of colonoscopy History of dilatation and curettage History of hysterectomy with bilateral oophorectomy History of lumpectomy History of ovarian cystectomy Family History (Updated 01/20/20 @ 13:54 by Clarissa Collazo) Mother Diabetes Stroke Brother Cancer Parkinson disease Stroke Diabetes Sister Breast cancer Hypertension Diabetes Stroke Father Kidney disease Coronary heart disease Denies family history of Ovarian cancer Prostate cancer Lung cancer Colorectal cancer Social History (Updated 01/20/20 @ 13:54 by Clarissa Collazo) Smoking Status: Former smoker Tobacco Type: Cigarettes Second Hand Exposure: No; Hx Alcohol Use: No Hx Substance Use: No Preferred Language: Croatian Communication Ability: Effective Visual Impairment: Limited Hearing Ability: Hard of Hearing Pay Per Click Strategist Required: No Beliefs That Will Affect Care: None marital status: Single Current Living Situation: Alone current occupational status: retired Feels Safe at Home: Yes Safety Concerns: Feels Safe At This Time Childhood Exposure to Second-Hand Smoke: Yes caffeine: Yes Dental Care, Regularly: Yes Physical Activity Frequency: Does not Exercise Seatbelt Use: always Sunscreen Use: Yes Review of Systems Review of Systems: All systems reviewed & are unremarkable except as noted in HPI & below Physical Exam Constitutional: WD/WN, vitals as above Eyes: PERRL, conjunctivae normal, anicteric sclerae wears corrective lenses ENMT: external ear and nose normal, oropharynx normal Neck: trachea midline, no thyromegaly Respiratory: normal respiratory effort, lungs clear to auscultation Cardiovascular: Rate/Rhythm: regular rate and regular rhythm Heart Sounds: no murmur Extremities: + pedal edema (RLE>LLE) pacemaker Gastrointestinal (Abdomen): Inspection/Auscultation: abdomen normal to inspection and normal bowel sounds; abdomen not distended Percussion/Palpation: abdomen soft; abdomen nontender Musculoskeletal: Extremities: no cyanosis and no clubbing Skin: no rashes, warm and dry Neurologic: PERRL, EOMI, accommodation nl, no face palsy, no dysarthria Psychiatric: A+Ox3, euthymic affect Results & Data ([facility]) Vital Signs (Past 12 Hours) Vital Signs Temp Pulse Pulse Resp BP BP Pulse Ox 03/31/20 07:42 36.9 C 72 18 145/63 H 98 03/31/20 03:35 36.8 C 65 18 125/64 95 03/31/20 02:42 36.7 C 62 16 140/60 100 03/31/20 02:33 36.8 C 71 16 149/58 H 100 03/31/20 02:31 36.8 C 65 16 149/58 H 100 03/31/20 01:35 36.3 C L 67 16 114/61 99 03/31/20 01:05 36.4 C L 70 16 131/55 L 96 03/31/20 01:00 62 03/31/20 00:50 36.3 C L 68 16 130/58 L 94 03/31/20 00:45 36.3 C L 72 16 133/69 97 03/31/20 00:24 36.5 C 68 16 133/49 L 99 03/31/20 00:06 36.7 C 63 16 145/73 H 98 03/30/20 23:38 36.7 C 64 16 145/73 H 97 03/30/20 23:37 03/30/20 23:15 36.6 C 67 16 131/76 98 03/30/20 23:07 54 L 16 121/69 96 03/30/20 22:15 36.6 C 63 16 112/49 L 100 03/30/20 21:51 63 16 126/63 98 03/30/20 21:45 36.5 C 61 18 126/83 98 03/30/20 21:30 36.5 C 63 18 112/62 98 03/30/20 21:25 37.9 C H 69 17 111/52 L 98 03/30/20 21:21 36.7 C 60 17 123/56 L 99 03/30/20 21:15 36.5 C 62 18 116/49 L 93 03/30/20 20:26 64 16 108/50 L 98 Pulse Ox 03/31/20 07:42 03/31/20 03:35 03/31/20 02:42 03/31/20 02:33 03/31/20 02:31 03/31/20 01:35 03/31/20 01:05 03/31/20 01:00 03/31/20 00:50 03/31/20 00:45 03/31/20 00:24 03/31/20 00:06 03/30/20 23:38 03/30/20 23:37 97 03/30/20 23:15 03/30/20 23:07 03/30/20 22:15 03/30/20 21:51 03/30/20 21:45 03/30/20 21:30 03/30/20 21:25 03/30/20 21:21 03/30/20 21:15 03/30/20 20:26 Laboratory Results - last 24 hr 03/30/20 03/30/20 03/30/20 19:52 19:52 19:52 WBC 6.80 RBC 3.54 L Hgb 6.5 L* Hct 24.4 L MCV 68.9 L MCH 18.4 L MCHC 26.6 L RDW Std Deviation 48.6 H RDW Coeff of Grace 19.4 H Plt Count 492 H MPV 9.8 Immature Gran % (Auto) 0.1 Neut % (Auto) 66.0 Lymph % (Auto) 16.6 [place] % (Auto) 14.9 Eos % (Auto) 0.9 Baso % (Auto) 1.5 Neut # (Auto) 4.49 Lymph # (Auto) 1.13 L [place] # (Auto) 1.01 H Eos # (Auto) 0.06 Baso # (Auto) 0.10 Immature Gran # (Auto) 0.01 Absolute Nucleated RBC 0.20 H Nucleated RBC % (auto) 3.0 Hypersegmented Neuts 1+ Hypochromasia Present Poikilocytosis Anisocytosis Microcytosis Present Ovalocytes 1+ PT 25.2 H INR 2.5 H APTT 36.2 H PTT Ratio 1.3 Sodium 138 Potassium 4.5 Chloride 108 H Carbon Dioxide 21 Anion Gap 9.0 BUN 32 H Creatinine 1.12 Est Cr Clr Drug Dosing 29.7 Est GFR ( Amer) 52.2 Est GFR (Non-Af Amer) 45.1 BUN/Creatinine Ratio 28.6 H Glucose 164 H Calcium 9.4 Magnesium 2.1 Total Bilirubin 1.3 H AST 95 H ALT 173 H Alkaline Phosphatase 63 Troponin I < 0.015 Total Protein 7.0 Albumin 3.7 Globulin 3.3 Albumin/Globulin Ratio 1.1 TSH 2.670 Stool Occult Bld Scrn COVID-19 Eval Order COVID-19 PCR Blood Type Antibody Screen Crossmatch 03/30/20 03/31/20 03/31/20 19:52 00:17 00:17 WBC RBC Hgb Hct MCV MCH MCHC RDW Std Deviation RDW Coeff of Grace Plt Count MPV Immature Gran % (Auto) Neut % (Auto) Lymph % (Auto) [place] % (Auto) Eos % (Auto) Baso % (Auto) Neut # (Auto) Lymph # (Auto) [place] # (Auto) Eos # (Auto) Baso # (Auto) Immature Gran # (Auto) Absolute Nucleated RBC Nucleated RBC % (auto) Hypersegmented Neuts Hypochromasia Poikilocytosis Anisocytosis Microcytosis Ovalocytes PT INR APTT PTT Ratio Sodium Potassium Chloride Carbon Dioxide Anion Gap BUN Creatinine Est Cr Clr Drug Dosing Est GFR ( Amer) Est GFR (Non-Af Amer) BUN/Creatinine Ratio Glucose Calcium Magnesium Total Bilirubin AST ALT Alkaline Phosphatase Troponin I Total Protein Albumin Globulin Albumin/Globulin Ratio TSH Stool Occult Bld Scrn COVID-19 Eval Order Covid19 Done at [facility] COVID-19 PCR NEGATIVE Blood Type A Positive Antibody Screen NEGATIVE Crossmatch See Detail 03/31/20 03/31/20 03/31/20 03:30 05:59 05:59 WBC 6.68 RBC 4.04 L Hgb 8.5 L Hct 29.2 L MCV 72.3 L MCH 21.0 L MCHC 29.1 L RDW Std Deviation 59.5 H RDW Coeff of Grace 22.8 H Plt Count 408 H MPV 9.8 Immature Gran % (Auto) 0.1 Neut % (Auto) 57.6 Lymph % (Auto) 22.6 [place] % (Auto) 16.9 Eos % (Auto) 1.9 Baso % (Auto) 0.9 Neut # (Auto) 3.84 Lymph # (Auto) 1.51 [place] # (Auto) 1.13 H Eos # (Auto) 0.13 Baso # (Auto) 0.06 Immature Gran # (Auto) 0.01 Absolute Nucleated RBC 0.10 H Nucleated RBC % (auto) 1.5 Hypersegmented Neuts Hypochromasia Present Poikilocytosis Present Anisocytosis Present Microcytosis Present Ovalocytes PT 17.5 H INR 1.7 H APTT 32.7 H PTT Ratio 1.2 Sodium Potassium Chloride Carbon Dioxide Anion Gap BUN Creatinine Est Cr Clr Drug Dosing Est GFR ( Amer) Est GFR (Non-Af Amer) BUN/Creatinine Ratio Glucose Calcium Magnesium Total Bilirubin AST ALT Alkaline Phosphatase Troponin I Total Protein Albumin Globulin Albumin/Globulin Ratio TSH Stool Occult Bld Scrn Positive A COVID-19 Eval Order COVID-19 PCR Blood Type Antibody Screen Crossmatch 03/31/20 05:59 WBC RBC Hgb Hct MCV MCH MCHC RDW Std Deviation RDW Coeff of Grace Plt Count MPV Immature Gran % (Auto) Neut % (Auto) Lymph % (Auto) [place] % (Auto) Eos % (Auto) Baso % (Auto) Neut # (Auto) Lymph # (Auto) [place] # (Auto) Eos # (Auto) Baso # (Auto) Immature Gran # (Auto) Absolute Nucleated RBC Nucleated RBC % (auto) Hypersegmented Neuts Hypochromasia Poikilocytosis Anisocytosis Microcytosis Ovalocytes PT INR APTT PTT Ratio Sodium 140 Potassium 4.3 Chloride 111 H Carbon Dioxide 22 Anion Gap 7.0 BUN 30 H Creatinine 0.89 Est Cr Clr Drug Dosing 35.3 Est GFR ( Amer) 69.0 Est GFR (Non-Af Amer) 59.5 BUN/Creatinine Ratio 33.7 H Glucose 102 H Calcium 9.4 Magnesium Total Bilirubin 2.2 H D AST 63 H ALT 130 H Alkaline Phosphatase 54 Troponin I Total Protein 5.9 L Albumin 3.2 L Globulin 2.7 Albumin/Globulin Ratio 1.2 TSH Stool Occult Bld Scrn COVID-19 Eval Order COVID-19 PCR Blood Type Antibody Screen Crossmatch
--- NOTE | 2020-03-31 08:30 | Hospitalist Progress Note ---
Date of Service March 31, 2020 Assessment & Plan (1) Symptomatic anemia: Patient is an 84 year old female with PMHx Afib, Tachy-teddy syndrome s/p PM, HFrEF, CAD s/p stent, GERD, who presented to the ED with symptomatic anemia and hemoglobin of 6.5 on admission. Symptomatic Anemia - Microcytic -Symptomatic at hemoglobin 6.5 on arrival, was transfused with 2 units of PRBC, repeat Hgb in AM 8.5 -Cause unclear at this time, though suspect colon cancer vs GI bleed due to Xarelto and clopidogrel use and heme + stool -GI Consulted - plan for EGD this afternoon -Consider CT Ab/Pelv with contrast later this afternoon -Iron studies Iron 31, Ferritin 7.6, TIBC 473 -Indirect bilirubin high at 1.5, ?[place] -LFTs slightly elevated at AST 63, ALT 139, Alk Phos 54 -Transfuse for hemoglobin <7 or <8 if symptomatic -NSS +20meq KCl 60ml/hr GERD -Continue Protonix BID Afib -Continue Digoxin and Metoprolol -Holding Xarelto CAD S/P Stents -Stents in 1993 and 2002 -Hold Clopidogrel -Hold Lipitor while LFTs high HTN -Holding Lisinopril HFrEF -Holding Lisinopril Tachy-Teddy Syndrome -S/P pacemaker placement 2015 Dispo: PCU FEN: NPO, NSS + 20meq KCL 60 ml/hr DVT: Code: (2) GERD (gastroesophageal reflux disease): (3) Heart failure with reduced ejection fraction: (4) Coronary artery disease: (5) Anticoagulant long-term use: (6) Atrial fibrillation: (7) Tachy-teddy syndrome: (8) Diabetes mellitus, type II: (9) Hyperlipidemia: (10) Cardiac pacemaker in situ: Admission and Anticipated Discharge Date Admission Date: March 30, 2020 Supervising Physician Co-Signing Physician Notes I personally examined the patient and verified all chung points of history and exam, discussed case, and agree with decision making with Dr Crain. feeling ok. wonders when she'll feel like herself though. EGD without significant findings as it relates to anemia vitals noted nad heent nc at mmm breathing unlabored no accessory muscles good effort skin no rashes no pallor (?vs maybe mild) or icterus anemia - EGD neg. colo tomorrow. improved after transfusion elevated LFTs - CT abd/pelvis otherwise as above Subjective Patient evaluated at the bedside this morning. Patient stated that she was feeling better than she had yesterday. Denying anymore fatigue. She did disclose to me that for the past 2-3 weeks now she has been having worsening abdominal pain and black tarry stools. She notes that she has been taking Pepto-Bismol as well which makes her stools dark, but she was having the problem with dark stools prior to this. She also notes that her weakness has been ongoing and that she has been feeling more and more tired for the past month along with SOB upon exertion. Currently she notes that she feels relatively well. Review of Systems Constitutional: + fatigue and + weakness; no fever and no chills Eyes: no worsening vision Ear, Nose, Mouth, Throat: no dizziness Respiratory: + dyspnea on exertion; no cough, no dyspnea, no hemoptysis and no pain on inspiration Cardiovascular: + dyspnea on exertion; no chest pain, no chest pain at rest, no radiating jaw, neck or arm pain, no dyspnea, no palpitations and no lightheadedness Gastrointestinal: + blood in stools (black tarry stools); no abdominal pain, no nausea and no vomiting Genitourinary: no dysuria Physical Exam Constitutional: no acute distress and not ill appearing Eyes: + anicteric sclerae and PERRL; no scleral abnormality ENMT: external ear and nose normal, oropharynx normal Neck: trachea midline, no thyromegaly Respiratory: normal respiratory effort, lungs clear to auscultation Cardiovascular: Rate/Rhythm: regular rate (paced) Heart Sounds: no murmur Vessels: no JVD Chest (Breasts): Chest: + pacemaker Gastrointestinal (Abdomen): normal bowel sounds, soft, nontender, no hepatosplenomegaly Skin: no rashes, warm and dry normal turgor Psychiatric: A+Ox3, euthymic affect Results & Data Results & Data ([facility]) Vital Signs (Past 12 Hours) Vital Signs Temp Pulse Pulse Resp BP BP Pulse Ox 03/31/20 07:42 36.9 C 72 18 145/63 H 98 03/31/20 03:35 36.8 C 65 18 125/64 95 03/31/20 02:42 36.7 C 62 16 140/60 100 03/31/20 02:33 36.8 C 71 16 149/58 H 100 03/31/20 02:31 36.8 C 65 16 149/58 H 100 03/31/20 01:35 36.3 C L 67 16 114/61 99 03/31/20 01:05 36.4 C L 70 16 131/55 L 96 03/31/20 01:00 62 03/31/20 00:50 36.3 C L 68 16 130/58 L 94 03/31/20 00:45 36.3 C L 72 16 133/69 97 03/31/20 00:24 36.5 C 68 16 133/49 L 99 03/31/20 00:06 36.7 C 63 16 145/73 H 98 03/30/20 23:38 36.7 C 64 16 145/73 H 97 03/30/20 23:37 03/30/20 23:15 36.6 C 67 16 131/76 98 03/30/20 23:07 54 L 16 121/69 96 03/30/20 22:15 36.6 C 63 16 112/49 L 100 03/30/20 21:51 63 16 126/63 98 03/30/20 21:45 36.5 C 61 18 126/83 98 03/30/20 21:30 36.5 C 63 18 112/62 98 03/30/20 21:25 37.9 C H 69 17 111/52 L 98 03/30/20 21:21 36.7 C 60 17 123/56 L 99 03/30/20 21:15 36.5 C 62 18 116/49 L 93 Pulse Ox 03/31/20 07:42 03/31/20 03:35 03/31/20 02:42 03/31/20 02:33 03/31/20 02:31 03/31/20 01:35 03/31/20 01:05 03/31/20 01:00 03/31/20 00:50 03/31/20 00:45 03/31/20 00:24 03/31/20 00:06 03/30/20 23:38 03/30/20 23:37 97 03/30/20 23:15 03/30/20 23:07 03/30/20 22:15 03/30/20 21:51 03/30/20 21:45 03/30/20 21:30 03/30/20 21:25 03/30/20 21:21 03/30/20 21:15 Resident Activity Tracking Resident Involvement: Resident Care Provided Care Provided: Adult Hospital Medicine
[2020-03-31] MEDS ORDERED: PANTOprazole 40 MG in SYRINGE 0 ML IV SCH (11:00)
[2020-03-31 11:01] LABS: Reticulocyte % 1.4 % (0.5-2.0); Reticulocytes # 0.06 10^6/uL (0.02-0.10)
[2020-03-31 11:12] LABS: Bilirubin Direct 0.6 mg/dl (0-0.2); Bilirubin,Total 2.1 mg/dl (0.2-1); Ferritin 7.6 ng/ml (8-388)
[2020-03-31] MEDS ORDERED: ATORVASTATIN 40 MG TAB PO SCH (11:30)
[2020-03-31] MEDS: DIGOXIN 0.125 MG TAB PO SCH (12:52)
[2020-03-31] MEDS ORDERED: SODIUM CHLORIDE 0.9% 1000ML 1,000 ML IV SCH (14:30)
[2020-03-31] MEDS ORDERED: PROPOFOL IV EMULSION 10 MG/ML 20 ML VIAL IV ONE (14:32)
[2020-03-31] MEDS ORDERED: LIDOCAINE HCL 2% 2 ML VIAL/AMP(20MG/ML) INFIL ONE (14:32)
--- NOTE | 2020-03-31 14:39 | History & Physical Report ---
Date of Service March 31, 2020 Assessment & Plan Admission and Anticipated Discharge Date Admission Date: March 30, 2020 History of Present Illness Chief Complaint: anemia Primary Care Provider: Pete Payne, For EGD Allergies Allergy/AdvReac Type Severity Reaction Status Date / Time diltiazem Allergy Severe HIVES Verified 03/31/20 14:19 alendronate sodium Allergy Mild bad Verified 03/31/20 14:19 stomach pains cholestyramine Allergy Mild ? REMEMBER Verified 03/31/20 14:19 simvastatin Allergy Mild Headache Verified 03/31/20 14:19 ibandronate sodium Allergy Verified 03/31/20 14:19 [From Boniva] sucrose [From Questran] Allergy Verified 03/31/20 14:19 ezetimibe AdvReac Mild Headache Verified 03/31/20 14:19 niacin AdvReac Mild SICK TO Verified 03/31/20 14:19 STOMACH risedronate sodium AdvReac Mild STOMACH Verified 03/31/20 14:19 PAINS aspirin [From Aggrenox] AdvReac Headache Verified 03/31/20 14:19 dipyridamole [From Aggrenox] AdvReac Headache Verified 03/31/20 14:19 Home Medications Home Medications Medication Instructions Recorded Confirmed Type cholecalciferol (vitamin D3) 1,000 unit PO QDL 06/23/18 03/30/20 History [Vitamin D3] coenzyme Q10 [Co Q-10] 100 mg PO QDL 06/23/18 03/30/20 History utvyiaqy-qlv-XJ-lut-zeaxanth 1 tab PO QDL 07/16/18 03/30/20 History [Macular Vitamin] acetaminophen [Tylenol] 650 mg PO Q6H PRN 08/05/18 03/30/20 History potassium chloride 20 mEq 20 meq PO DAILY #90 tab 08/04/19 03/30/20 Rx tablet,extended release(part/cryst) digoxin 125 mcg (0.125 mg) tablet 125 mcg PO QDL #90 tab 09/08/19 03/30/20 Rx atorvastatin 80 mg tablet 80 mg PO QDL #90 tab 10/15/19 03/30/20 Rx clopidogrel 75 mg tablet 75 mg PO QDL #90 tab 11/17/19 03/30/20 Rx furosemide 20 mg tablet 20 mg PO DAILY #90 tab 12/01/19 03/30/20 Rx metoprolol succinate 100 mg 150 mg PO HS #135 tab 12/04/19 03/30/20 Rx tablet,extended release 24 hr rivaroxaban 20 mg tablet 20 mg PO HS #90 tab 01/05/20 03/30/20 Rx lisinopril 10 mg PO DAILY 03/30/20 03/30/20 History Past Med/Surg History Medical History (Updated 03/30/20 @ 21:49 by Sonny Junior MD) Atrial fibrillation Cancer BREAST-RT (RADIATION) UTERINE CANCER Cardiac pacemaker in situ Confirmed ischemic stroke Coronary artery disease S/p stent x2 RCA (1993 and 2002). Followed by cardiology. Medicallay managed with clopidogrel + statin + BB + ACEi. No ASA as on AC (rivaroxaban). Dementia Diabetes mellitus, type II Dizziness Dysphagia GERD (gastroesophageal reflux disease) Hearing loss Heart failure with reduced ejection fraction Herpes, genital History of endometrial cancer Diagnosed w/ stage 1A grade 1 endometrial cancer in 05/15. s/p TLH/BSO/nodes. No further treatment at this time and is followed q6 months by heme/onc and allergy nurse Hyperlipidemia Hypertension Insomnia Macular degeneration Osteoporosis DEXA scan 2009 showing minimum T score -2.7 involving forearm. Treated with calcium and vitamin D. Did not tolerate oral bisphosphonates. Declined Reclast in the past because of potential side effects. 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 Monitored by cardiology. Transient ischemic attack (TIA) SEVERAL TIA'S IN PAST (LAST EPISODE DECEMBER 2017) Vitamin D deficiency Surgical History History of appendectomy History of cardiac catheterization History of colonoscopy History of dilatation and curettage History of hysterectomy with bilateral oophorectomy History of lumpectomy History of ovarian cystectomy Family History (Updated 01/20/20 @ 13:54 by Clarissa Collazo) Mother Diabetes Stroke Brother Cancer Parkinson disease Stroke Diabetes Sister Breast cancer Hypertension Diabetes Stroke Father Kidney disease Coronary heart disease Denies family history of Ovarian cancer Prostate cancer Lung cancer Colorectal cancer Social History (Updated 01/20/20 @ 13:54 by Clarissa Collazo) Smoking Status: Former smoker Tobacco Type: Cigarettes Second Hand Exposure: No; Hx Alcohol Use: No Hx Substance Use: No Preferred Language: Hungarian Communication Ability: Effective Visual Impairment: Limited Hearing Ability: Hard of Hearing Boat Mechanic Required: No Beliefs That Will Affect Care: None marital status: Unknown Current Living Situation: Alone current occupational status: retired Feels Safe at Home: Yes Childhood Exposure to Second-Hand Smoke: Yes caffeine: Yes Dental Care, Regularly: Yes Physical Activity Frequency: Does not Exercise Seatbelt Use: always Sunscreen Use: Yes Physical Exam Constitutional: well developed and well nourished Respiratory: normal respiratory effort Cardiovascular: Rate/Rhythm: regular rate and regular rhythm Gastrointestinal (Abdomen): Percussion/Palpation: abdomen soft RLQ scar Results & Data ([facility]) Vital Signs (Past 12 Hours) Vital Signs Temp Pulse Pulse Resp BP BP Pulse Ox 03/31/20 11:55 36.8 C 69 17 152/65 H 98 03/31/20 07:42 36.9 C 72 18 145/63 H 98 03/31/20 03:35 36.8 C 65 18 125/64 95 03/31/20 02:42 36.7 C 62 16 140/60 100 03/31/20 02:33 36.8 C 71 16 149/58 H 100 Code Status & VTE Plan VTE Prophylaxis Plan VTE Prophylaxis will be ordered: Yes
--- NOTE | 2020-03-31 14:45 | Anesthesiology Consultation ---
Date of Service March 31, 2020 Assessment & Plan (1) Encounter for pre-operative examination: Chart Review Chart Review: Acceptable Risk for Surgery and Patient NOT seen in Pre Admission Testing Consults Requested none ASA ASA4 Proposed Anesthesia Anesthesia Type: MAC Risk / Benefits Reviewed With: PT / POA / Parent / Guardian, Accepts Plan and In formed Consent Obtained History Surgery Operation Date: 03/31/20 17:45 Proposed Procedures p Esophagogastroduodenoscopy Dr Fatou Lainez Operation Date: 04/01/20 17:15 Proposed Procedures p Colonoscopy Dr Fatou Lainez Height/Weight Height: 4 ft 10 in Weight: 57.3 kg Allergies Allergy/AdvReac Type Severity Reaction Status Date / Time diltiazem Allergy Severe HIVES Verified 03/31/20 14:19 alendronate sodium Allergy Mild bad Verified 03/31/20 14:19 stomach pains cholestyramine Allergy Mild ? REMEMBER Verified 03/31/20 14:19 simvastatin Allergy Mild Headache Verified 03/31/20 14:19 ibandronate sodium Allergy Verified 03/31/20 14:19 [From Boniva] sucrose [From Questran] Allergy Verified 03/31/20 14:19 ezetimibe AdvReac Mild Headache Verified 03/31/20 14:19 niacin AdvReac Mild SICK TO Verified 03/31/20 14:19 STOMACH risedronate sodium AdvReac Mild STOMACH Verified 03/31/20 14:19 PAINS aspirin [From Aggrenox] AdvReac Headache Verified 03/31/20 14:19 dipyridamole [From Aggrenox] AdvReac Headache Verified 03/31/20 14:19 Medications Home Medications Medication Instructions Recorded Confirmed Last Taken cholecalciferol (vitamin D3) 1,000 unit PO QDL 06/23/18 03/30/20 08/04/18 [Vitamin D3] coenzyme Q10 [Co Q-10] 100 mg PO QDL 06/23/18 03/30/20 08/04/18 [id number] 1 tab PO QDL 07/16/18 03/30/20 08/04/18 [Macular Vitamin] acetaminophen [Tylenol] 650 mg PO Q6H PRN 08/05/18 03/30/20 08/04/18 22:00 potassium chloride 20 mEq 20 meq PO DAILY #90 tab 08/04/19 03/30/20 Unknown tablet,extended release(part/cryst) digoxin 125 mcg (0.125 mg) tablet 125 mcg PO QDL #90 tab 09/08/19 03/30/20 Unknown atorvastatin 80 mg tablet 80 mg PO QDL #90 tab 10/15/19 03/30/20 Unknown clopidogrel 75 mg tablet 75 mg PO QDL #90 tab 11/17/19 03/30/20 Unknown furosemide 20 mg tablet 20 mg PO DAILY #90 tab 12/01/19 03/30/20 Unknown metoprolol succinate 100 mg 150 mg PO HS #135 tab 12/04/19 03/30/20 Unknown tablet,extended release 24 hr rivaroxaban 20 mg tablet 20 mg PO HS #90 tab 01/05/20 03/30/20 Unknown lisinopril 10 mg PO DAILY 03/30/20 03/30/20 Unknown Active Medications Generic Name Dose Route Start Last Admin Trade Name Freq PRN Reason Stop Dose Admin Atorvastatin Calcium 80 mg 03/31/20 11:30 03/31/20 12:52 Atorvastatin 40 Mg Tab PO 04/30/20 11:29 80 mg QDL JAN Administration Digoxin 0.125 mg 03/31/20 11:30 03/31/20 12:52 Digoxin 0.125 Mg Tab PO 04/30/20 11:29 0.125 mg QDL JAN Administration Potassium Chloride/Sodium Chloride 20 meq in 1,000 mls @ 60 mls/hr 03/31/20 00:15 03/31/20 02:45 Normal Saline W/20 Meq Kcl IV 04/30/20 00:14 60 mls/hr .[id number] JAN Administration Pantoprazole Sodium 40 mg/ 10 mls @ 5 mls/min 03/31/20 00:15 03/31/20 08:21 Syringe IV 04/30/20 00:14 5 mls/min BID JAN Administration NPO Date Last Intake of Fluids: 03/30/20 Last Intake of Fluids Comment: patient poor historianJOY stated NPO since midnight Date Last Intake of Solids: 03/30/20 Last Intake of Solids Comment: patient mariya historJOY elizabeth stated NPO since midnight Past Medical History Medical History Atrial fibrillation Cancer BREAST-RT (RADIATION) UTERINE CANCER Cardiac pacemaker in situ Confirmed ischemic stroke Coronary artery disease S/p stent x2 RCA (1993 and 2002). Followed by cardiology. Medicallay managed with clopidogrel + statin + BB + ACEi. No ASA as on AC (rivaroxaban). Dementia Diabetes mellitus, type II Dizziness Dysphagia GERD (gastroesophageal reflux disease) Hearing loss Heart failure with reduced ejection fraction Herpes, genital History of endometrial cancer Diagnosed w/ stage 1A grade 1 endometrial cancer in 05/15. s/p TLH/BSO/nodes. 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 Treated with calcium and vitamin D. Did not tolerate oral bisphosphonates. Declined Rec last in the past because of potential side effects. 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 Monitored by cardiology. Transient ischemic attack (TIA) SEVERAL TIA'S IN PAST (LAST EPISODE DECEMBER 2017) Vitamin D deficiency Exercise / Class Metabolic Activity II 4-5 Yardwork/Stairs/Walk up hill Past Family History Family History Mother Diabetes Stroke Brother Cancer Parkinson disease Stroke Diabetes Sister Breast cancer Hypertension Diabetes Stroke Father Kidney disease Coronary heart disease Denies family history of Ovarian cancer Prostate cancer Lung cancer Colorectal cancer Past Surgical History Surgical History History of appendectomy History of cardiac catheterization History of colonoscopy History of dilatation and curettage History of hysterectomy with bilateral oophorectomy History of lumpectomy History of ovarian cystectomy Past Anesthesia History No Hx of Anesthesia Complications and No Family Hx of Anesthesia Complications History of PONV No Hx of PONV and No Hx of Motion Sickness Social History Smoking Status: Former smoker Hx Alcohol Use: No Hx Substance Use: No substance use type: does not use Physical Exam Vital Signs Last Vital Signs Temp 36.7 C 03/31/20 14:21 Pulse 64 03/31/20 15:31 Resp 16 03/31/20 15:31 BP 114/47 L 03/31/20 15:31 Pulse Ox 96 03/31/20 15:31 ENMT Mouth: no dentition abnormality Thyromental Distance: > or= 3.5 Finger Breadths Mallampati Class: II Neck normal visual inspection Respiratory normal respiratory effort Auscultation: lungs clear to auscultation bilaterally Cardiovascular Rate/Rhythm: regular rate and regular rhythm Psychiatric Orientation: alert Testing Laboratory Results 03/31/20 05:59 03/31/20 05:59 PT 17.5 Seconds (9.0-12.0) H 03/31/20 05:59 INR 1.7 (0.9-1.1) H 03/31/20 05:59 APTT 32.7 Seconds (21.0-31.0) H 03/31/20 05:59 Blood Type A Positive 03/30/20 19:52 Antibody Screen NEGATIVE 03/30/20 19:52
--- NOTE | 2020-03-31 15:16 | GI REPORT ---
Patient Name: Davida Smalls Procedure Date: 03/31/2020 2:49 PM Date of : 1935 Admit Type: Inpatient Age: 84 Gender: Female Attending MD: Taras Lainez MD Procedure: Upper GI endoscopy Providers: Taras Lainez MD Referring MD: Pete Payne Indications: Iron deficiency anemia secondary to chronic blood loss, Heme positive stool Medicines: Propofol total dose 120 mg IV, Lidocaine 40 mg IV Complications: No immediate complications. Estimated Blood Loss: Estimated blood loss was minimal. Procedure: Pre-Anesthesia Assessment: - Prior to the procedure, a History and Physical was performed, and patient medications, allergies and sensitivities were reviewed. The patient's tolerance of previous anesthesia was reviewed. - The risks and benefits of the procedure and the sedation options and risks were discussed with the patient. All questions were answered and informed consent was obtained. After obtaining informed consent, the endoscope was passed under direct vision. Throughout the procedure, the patient's blood pressure, pulse, and oxygen saturations were monitored continuously. The Endoscope was introduced through the mouth, and advanced to the third part of duodenum. The upper GI endoscopy was accomplished without difficulty. The patient tolerated the procedure well. Findings: The Z-line was regular and was found 40 cm from the incisors. The examined esophagus was normal. Localized moderately erythematous mucosa without bleeding was found in the gastric antrum. Biopsies were taken with a cold forceps for histology. Estimated blood loss was minimal. The examined duodenum was normal. Impression: - Z-line regular, 40 cm from the incisors. - Normal esophagus. - Erythematous mucosa in the antrum. Biopsied. - Normal examined duodenum. Recommendation: - [facility]. - Perform a colonoscopy tomorrow. Taras Lainez M.D. Taras Lainez MD 03/31/2020 3:16:18 PM This report has been signed electronically. Note Initiated On: 03/31/2020 2:49 PM Number of Addenda: 0 I attest to the content of the Intraoperative Record and orders documented therein, exceptions below {[id number]}
--- NOTE | 2020-03-31 15:27 | Consultation Report ---
DATE OF CONSULTATION: 03/31/2020 Addendum to the consult by Moira Parsons: I examined the patient and reviewed her history. She presents with fatigue and dyspnea and hemoglobin of 6.5. She has received 2 units of blood to a hemoglobin of 8.5. Her stool was heme negative. She has had some mild nausea and abdominal pain. On exam, her abdomen is soft and she has a right lower quadrant scar from previous appendectomy. No mass or rebound are appreciated. She underwent an EGD in the endoscopy unit today. Stomach and small bowel into the third portion of the duodenum were normal. She did have an erythematous patch on the lesser curvature of the antrum that was localized and biopsied, but did not look particularly suspicious. Plan is to proceed with a colonoscopy tomorrow after bowel prep today and tomorrow morning.
[2020-03-31] MEDS: LAVAGE SOLUTION 4000ML PO SCH (17:09)
--- NOTE | 2020-03-31 17:09 | Billing Data ---
Date of Service March 31, 2020 Coding Level of Care Code 86197 Subseq Hosp Care Lvl 3
[2020-03-31] MEDS ORDERED: IOVERSOL 100ml IV ONE (18:16)
--- NOTE | 2020-03-31 18:31 | CT Scan Report ---
CT OF THE ABDOMEN AND PELVIS WITH CONTRAST CLINICAL HISTORY: Symptomatic Anemia, LFT bump, ?Met Dz COMPARISON STUDY: CT of the abdomen and pelvis 07/25/2014. TECHNIQUE: Following IV administration of 94 mL of Optiray-320, axial images of the abdomen and pelvi s were obtained from the lung bases to the proximal femurs. Images were reviewed in the axial, sagitt al, and coronal planes. IV contrast was administered without complication. Automated exposure contro l was utilized for the study. A dose lowering technique was utilized adhering to the principles of A TAMY. Oral contrast was administered. CT DOSE: 383.72 mGy.cm FINDINGS: Incidental note is made of levoscoliosis of the lumbar spine. Imaged portions of the lower chest demonstrate moderate cardiomegaly. Small right and trace left pleural effusions are noted. Lowe r lung opacities favor atelectasis. Anasarca is noted. A small amount of ascites is noted. Heterogene ity of the liver suggest passive hepatic congestion. There is no biliary or pancreatic ductal dilatat ion. Moderate gallbladder wall thickening is nonspecific. The gallbladder is not distended. Sensitivi ty for detection mucosal lesions within the bowel is diminished given CT technique but none are ident ified. There is sigmoid diverticulosis without evidence for acute diverticulitis. There is no evidenc e for a bowel obstruction. A left renal cyst is noted. There is no hydronephrosis. There is moderate left renal atrophy. Pancreas, adrenal glands and spleen are unremarkable. There is extensive plaque o f the abdominal aorta. No retroperitoneal hematoma is identified. No suspicious osseous lesions are n oted. Major vasculature is patent. IMPRESSION: 1. Evidence for volume overload with anasarca, small right and trace left pleural effusions and a sma ll amount of ascites. 2. Heterogeneity of the liver parenchyma which suggests passive hepatic congestion related to right h eart dysfunction. This likely also accounts for moderate gallbladder wall thickening. Gallbladder not distended. 3. No bowel obstruction. No retroperitoneal hematoma. Chronic diverticulosis without evidence for acu te diverticulitis. ACT 112: Negative or not required by law. Electronically signed by: Varinder Lopez M.D. 03/31/2020 6:30 PM
[2020-03-31] MEDS: METOPROLOL SUCC 50MG EXT REL TAB PO SCH (20:53)
--- NOTE | 2020-03-31 21:07 | Electrocardiogram Report ---
Test Reason : Blood Pressure : / mmHG Vent. Rate : 064 BPM Atrial Rate : 208 BPM P-R Int : 000 ms QRS Dur : 162 ms QT Int : 426 ms P-R-T Axes : 000 -68 119 degrees QTc Int : 439 ms Poor data quality, interpretation may be adversely affected Ventricular-paced rhythm Abnormal ECG When compared with ECG of 07-JAN-2018 22:51, Vent. rate has decreased BY 22 BPM Confirmed by John Whitney ([id number]) on 03/31/2020 9:07:30 PM Referred By: Pete Payne Confirmed By:John Whitney
[2020-03-31] MEDS: ACETAMINOPHEN 325 MG TAB PO PRN (22:27)
[2020-04-01 06:20] LABS: Basophils # (auto) 0.04 K/uL (0-0.2); Basophils % (auto) 0.5 %; Eosinophils % (auto) 2.7 %; Hematocrit (blood only) 29.7 % (37-47); Hemoglobin 8.7 g/dL (12.0-16.0); Immature Granulocytes # (auto) 0.01 K/uL (0.00-0.02); Immature Granulocytes % (auto) 0.1 %; Mean Corpuscular Hemoglobin 21.5 pg (25-34); Mean Corpuscular Hgb Conc 29.3 g/dL (32-36); Mean Corpuscular Volume 73.3 fL (80-100); Mean Platelet Volume 9.5 fL (7.4-10.4); Monocytes # (auto) 1.23 K/uL (0.11-0.59); Monocytes % (auto) 16.4 %; Neutrophils # (auto) 4.81 K/uL (1.4-6.5); Neutrophils % (auto) 64.3 %; Nucleated RBC # (auto) 0.15 K/uL (0-0); Platelet Count 416 K/uL (130-400); RDW Coefficient of Variation 23.1 % (11.5-14.5); RDW Standard Deviation 61.3 fL (36.4-46.3); Red Blood Count 4.05 M/uL (4.2-5.4); White Blood Count 7.49 K/uL (4.8-10.8)
[2020-04-01] MEDS: LAVAGE SOLUTION 4000ML PO SCH (06:26)
[2020-04-01 06:43] LABS: INR 1.5 (0.9-1.1); Partial Thromboplastin Time 28.2 Seconds (21.0-31.0); Prothrombin Time 15.1 Seconds (9.0-12.0)
--- NOTE | 2020-04-01 06:47 | Electrocardiogram Report ---
Test Reason : Blood Pressure : / mmHG Vent. Rate : 064 BPM Atrial Rate : 288 BPM P-R Int : 000 ms QRS Dur : 160 ms QT Int : 426 ms P-R-T Axes : 000 -61 106 degrees QTc Int : 439 ms Ventricular-paced rhythm Abnormal ECG When compared with ECG of 30-MAR-2020 19:38, No significant change was found Confirmed by John Whitney ([id number]) on 04/01/2020 6:46:59 AM Referred By: Pete Payne Confirmed By:John Whitney
[2020-04-01 06:48] LABS: Acanthocytes 1+; Anisocytosis Present; Echinocytes 1+; Hypochromasia Present; Microcytosis Present; Polychromasia 1+
--- NOTE | 2020-04-01 06:54 | Hospitalist Progress Note ---
Date of Service April 01, 2020 Assessment & Plan (1) Symptomatic anemia: Patient is an 84 year old female with PMHx Afib, Tachy-teddy syndrome s/p PM, HFrEF, CAD s/p stent, GERD, who presented to the ED with symptomatic anemia and hemoglobin of 6.5 on admission. Symptomatic Anemia - Microcytic -Symptomatic at hemoglobin 6.5 on arrival, was transfused with 2 units of PRBC, repeat Hgb in AM 8.5, current Hgb 8.7 -Cause unclear at this time, though suspect iron deficiency, colon cancer vs GI bleed due to Xarelto and clopidogrel use and heme + stool -GI Consulted -EGD 03/31/20 with minimal erythematous patch on the lesser curvature of the antrum that was biopsied -Plan for Colonoscopy today -CT Ab/Pelv w/ contrast negative for metastatic lesions, noting volume overload with anasarca and small R and trace L pleural effusions. -Iron studies Iron 31, Ferritin 7.6, TIBC 473 -Given a dose of Venofer today -Indirect bilirubin high at 1.5, ?[place] -LFTs slightly elevated at AST 63, ALT 139, Alk Phos 54 -Transfuse for hemoglobin <7 or <8 if symptomatic -NSS +20meq KCl 60ml/hr GERD -Continue Protonix BID Afib -Continue Digoxin and Metoprolol -Holding Xarelto CAD S/P Stents -Stents in 1993 and 2002 -Hold Clopidogrel -Hold Lipitor while LFTs high HTN -Holding Lisinopril HFrEF -Holding Lisinopril Tachy-Teddy Syndrome -S/P pacemaker placement 2015 Dispo: PCU FEN: NPO, NSS + 20meq KCL 60 ml/hr DVT: Hold Xarelto Code: Full Code (2) GERD (gastroesophageal reflux disease): (3) Heart failure with reduced ejection fraction: (4) Coronary artery disease: (5) Anticoagulant long-term use: (6) Atrial fibrillation: (7) Tachy-teddy syndrome: (8) Diabetes mellitus, type II: (9) Hyperlipidemia: (10) Cardiac pacemaker in situ: Admission and Anticipated Discharge Date Admission Date: March 30, 2020 Supervising Physician Co-Signing Physician Notes I personally examined the patient and verified all chung points of history and exam, discussed case, and agree with decision making with Dr Crain. feeling ok and eating OK post colo. walked but was a bit unsteady per nursing vitals noted nad heent nc at mmm breathing unlabored no accessory muscles good effort skin no rashes no pallor or icterus anemia - EGD neg. colo without obvious source of bleed. capsule endoscopy as outpt - but more than likely AVMs given negative w/u thus far. increase Fe supplementation, IV Fe today and tomorrow elevated LFTs - improving unsteady gait - ?baseline. will give time to get stronger/wake up more/etc post colo - hopefully home tomorrow. PT/OT input otherwise as above Subjective Patient examined while seated on commode this AM as she was having prep therapy completed for colonoscopy later this afternoon. Patient noted that she was feeling much better today than she did yesterday and that her symptoms over all had been improving. She notes that she is currently having fairly liquid stools secondary to the colonoscopy prep. She otherwise notes she feels well and is actually interested in going home to her cat. Discussion about a mcfp was brought up, but patient stated that she was fairly independent and would prefer home. Review of Systems Constitutional: + weakness; no fever and no chills Respiratory: + dyspnea on exertion; no cough, no dyspnea, no hemoptysis and no pain on inspiration Cardiovascular: + dyspnea on exertion; no chest pain, no chest pain at rest, no radiating jaw, neck or arm pain, no dyspnea, no palpitations, no lightheadedness and no syncope Gastrointestinal: + diarrhea/loose stools (secondary to prep); no abdominal pain, no nausea, no vomiting and no blood in stools Genitourinary: no dysuria Physical Exam Constitutional: no acute distress and not ill appearing Eyes: + anicteric sclerae and PERRL; no scleral abnormality ENMT: external ear and nose normal, oropharynx normal Neck: trachea midline, no thyromegaly Respiratory: normal respiratory effort, lungs clear to auscultation Cardiovascular: Rate/Rhythm: regular rate (paced) Heart Sounds: no murmur Chest (Breasts): Chest: + pacemaker Gastrointestinal (Abdomen): normal bowel sounds, soft, nontender, no hepatosplenomegaly Skin: no rashes, warm and dry normal turgor Psychiatric: A+Ox3, euthymic affect Results & Data Results & Data ([facility]) Vital Signs (Past 12 Hours) Vital Signs Temp Pulse Pulse Resp BP Pulse Ox 04/01/20 03:24 36.7 C 75 18 133/68 95 03/31/20 23:35 36.7 C 68 19 148/47 H 98 03/31/20 20:30 64 03/31/20 19:43 36.4 C L 64 18 140/87 93 Resident Activity Tracking Resident Involvement: Resident Care Provided Care Provided: Adult Hospital Medicine
[2020-04-01 07:01] LABS: Albumin Globulin Ratio 1.1 (0.9-2); Albumin Level 3.1 gm/dl (3.4-5.0); BUN Creatinine Ratio 21.9 (10-20); Bilirubin,Total 2.1 mg/dl (0.2-1); Calcium 9.1 mg/dl (8.5-10.1); Creatinine Clr Calc Pharmacy 39.8 ml/min; Est GFR (African American) 79.7; Est GFR (Non-African American) 68.7; Globulin 2.7 gm/dl (2.5-4.0); Potassium 4.5 mmol/L (3.5-5.1); Total Protein 5.8 gm/dl (6.4-8.2)
[2020-04-01] MEDS ORDERED: IRON SUCROSE 200 MG in 0.9 % SODIUM CHLORIDE 100 ML IV ONE (08:30)
[2020-04-01] MEDS: PANTOprazole 40 MG in SYRINGE 0 ML IV SCH ×2 (08:36→20:06)
--- NOTE | 2020-04-01 08:43 | Gastroenterology Progress Note ---
Date of Service April 01, 2020 Assessment & Plan (1) Symptomatic anemia: Patient admitted due to symptomatic anemia - Hgb 8.7/Hct 29.7 this morning. Continue NPO and hold Plavix and Xarelto. Plan is colonoscopy today by Dr. Lainez - patient agreeable, risks reviewed. Please refer to supervising physician addendum for further recommendations. Admission and Anticipated Discharge Date Admission Date: March 30, 2020 Supervising Physician Co-Signing Physician Notes I agree with the above EBER note. I saw and examined the patient. Abd pt bs, soft, no gaurding nor rebound. For colonoscopy today. Subjective The patient is an 84-year-old female with a past medical history including GERD, vitamin D deficiency, dysphagia, ischemic stroke, CAD, HFrEF, hypertension, atrial fibrillation, tachybradycardia syndrome, dementia, diabetes mellitus type 2, endometrial cancer, hyperlipidemia, cardiac pacemaker and insomnia. Patient presented to the ED with significant anemia (Hgb 6.5, Hct 24.4) after PCP appointment due to persistent fatigue and dyspnea on exertion. She was subsequently admitted, started on IV Protonix, received 2 units PRBC, NPO, and hold Xarelto and Plavix. 03/31/2020: EGD by Dr. Lainez demonstrated normal stomach and small bowel into the third portion of the duodenum were normal. She did have an erythematous patch on the lesser curvature of the antrum that was localized and biopsied, but did not look particularly suspicious. Plan is to proceed with a colonoscopy today. On exam/interview today, the patient reports that she slept okay through the night. The patient denies any bright red blood per rectum - positive stool for occult blood 03/31/2020. She is prepping for colonoscopy and reports she has been on and off the toilet for BM frequently. Denies abdominal pain, nausea, vomiting, diarrhea this morning. She reports + flatus this morning. Mild confusion, reorients easily. She is unmarried and lives alone. She has no children. She has a sister and [id number] that live in [place]. She was treated for stage IA grade 1 endometrial cancer in April 2017. Had TLH/BSO/lymph node removal. No further treatment at this time and is followed every 6 months by Oncology and Gynecology. Review of Systems Review of Systems: All systems reviewed & are unremarkable except as noted in HPI & below Physical Exam Constitutional: WD/WN, vitals as above Eyes: PERRL, conjunctivae normal, anicteric sclerae ENMT: external ear and nose normal, oropharynx normal Neck: trachea midline, no thyromegaly Respiratory: normal respiratory effort, lungs clear to auscultation Cardiovascular: Rate/Rhythm: regular rate and regular rhythm Heart Sounds: no murmur Extremities: + pedal edema (RLE>LLE) Gastrointestinal (Abdomen): Inspection/Auscultation: abdomen normal to inspection and normal bowel sounds; abdomen not distended Percussion/Palpation: abdomen soft; abdomen nontender Musculoskeletal: Extremities: no cyanosis and no clubbing Skin: no rashes, warm and dry Neurologic: PERRL, EOMI, accommodation nl, no face palsy, no dysarthria Psychiatric: A+Ox3, euthymic affect Results & Data ([facility]) Vital Signs (Past 12 Hours) Vital Signs Temp Pulse Resp BP Pulse Ox 04/01/20 08:02 36.7 C 71 18 174/78 H 94 04/01/20 03:24 36.7 C 75 18 133/68 95 03/31/20 23:35 36.7 C 68 19 148/47 H 98 Laboratory Results - last 24 hr 03/31/20 03/31/20 03/31/20 05:59 05:59 05:59 WBC RBC Hgb Hct MCV MCH MCHC RDW Std Deviation RDW Coeff of Grace Plt Count MPV Immature Gran % (Auto) Neut % (Auto) Lymph % (Auto) [place] % (Auto) Eos % (Auto) Baso % (Auto) Reticulocyte % (Auto) 1.4 Cancelled Neut # (Auto) Lymph # (Auto) [place] # (Auto) Eos # (Auto) Baso # (Auto) Reticulocyte # 0.06 Cancelled Immature Gran # (Auto) Absolute Nucleated RBC Nucleated RBC % (auto) Hypersegmented Neuts Polychromasia Hypochromasia Anisocytosis Microcytosis Echinocytes Acanthocytes (Spur) PT INR APTT PTT Ratio Sodium Potassium Chloride Carbon Dioxide Anion Gap BUN Creatinine Est Cr Clr Drug Dosing Est GFR ( Amer) Est GFR (Non-Af Amer) BUN/Creatinine Ratio Glucose POC Glucose Calcium Iron 31 L TIBC 473 H Ferritin 7.6 L Total Bilirubin 2.1 H Direct Bilirubin 0.6 H AST ALT Alkaline Phosphatase Lactate Dehydrogenase Total Protein Albumin Globulin Albumin/Globulin Ratio 03/31/20 03/31/20 04/01/20 11:00 16:07 05:59 WBC 7.49 RBC 4.05 L Hgb 8.7 L Hct 29.7 L MCV 73.3 L MCH 21.5 L MCHC 29.3 L RDW Std Deviation 61.3 H RDW Coeff of Grace 23.1 H Plt Count 416 H MPV 9.5 Immature Gran % (Auto) 0.1 Neut % (Auto) 64.3 Lymph % (Auto) 16.0 [place] % (Auto) 16.4 Eos % (Auto) 2.7 Baso % (Auto) 0.5 Reticulocyte % (Auto) Neut # (Auto) 4.81 Lymph # (Auto) 1.20 [place] # (Auto) 1.23 H Eos # (Auto) 0.20 Baso # (Auto) 0.04 Reticulocyte # Immature Gran # (Auto) 0.01 Absolute Nucleated RBC 0.15 H Nucleated RBC % (auto) 2.0 Hypersegmented Neuts 1+ Polychromasia 1+ Hypochromasia Present Anisocytosis Present Microcytosis Present Echinocytes 1+ Acanthocytes (Spur) 1+ PT INR APTT PTT Ratio Sodium Potassium Chloride Carbon Dioxide Anion Gap BUN Creatinine Est Cr Clr Drug Dosing Est GFR ( Amer) Est GFR (Non-Af Amer) BUN/Creatinine Ratio Glucose POC Glucose 96 Calcium Iron TIBC Ferritin Total Bilirubin Direct Bilirubin AST ALT Alkaline Phosphatase Lactate Dehydrogenase 269 H Total Protein Albumin Globulin Albumin/Globulin Ratio 04/01/20 04/01/20 05:59 05:59 WBC RBC Hgb Hct MCV MCH MCHC RDW Std Deviation RDW Coeff of Grace Plt Count MPV Immature Gran % (Auto) Neut % (Auto) Lymph % (Auto) [place] % (Auto) Eos % (Auto) Baso % (Auto) Reticulocyte % (Auto) Neut # (Auto) Lymph # (Auto) [place] # (Auto) Eos # (Auto) Baso # (Auto) Reticulocyte # Immature Gran # (Auto) Absolute Nucleated RBC Nucleated RBC % (auto) Hypersegmented Neuts Polychromasia Hypochromasia Anisocytosis Microcytosis Echinocytes Acanthocytes (Spur) PT 15.1 H INR 1.5 H APTT 28.2 PTT Ratio 1.0 Sodium 139 Potassium 4.5 Chloride 112 H Carbon Dioxide 17 L Anion Gap 10.0 BUN 17 Creatinine 0.79 Est Cr Clr Drug Dosing 39.8 Est GFR ( Amer) 79.7 Est GFR (Non-Af Amer) 68.7 BUN/Creatinine Ratio 21.9 H Glucose 105 H POC Glucose Calcium 9.1 Iron TIBC Ferritin Total Bilirubin 2.1 H Direct Bilirubin AST 36 ALT 102 H Alkaline Phosphatase 55 Lactate Dehydrogenase Total Protein 5.8 L Albumin 3.1 L Globulin 2.7 Albumin/Globulin Ratio 1.1
[2020-04-01] MEDS: NSS + 20MEQ KCL 20 MEQ/1,000 ML BAG IV SCH (10:39)
[2020-04-01] MEDS: ACETAMINOPHEN 325 MG TAB PO PRN (12:11)
[2020-04-01] MEDS: DIGOXIN 0.125 MG TAB PO SCH (12:11)
--- NOTE | 2020-04-01 14:59 | Anesthesiology Consultation ---
Date of Service April 01, 2020 Assessment & Plan (1) Encounter for pre-operative examination: Chart Review Chart Review: Acceptable Risk for Surgery Consults Requested none ASA ASA4 Proposed Anesthesia Anesthesia Type: MAC Risk / Benefits Reviewed With: PT / POA / Parent / Guardian, Accepts Plan and Informed Consent Obtained History Surgery Operation Date: 03/31/20 17:45 Proposed Procedures p Esophagogastroduodenoscopy Dr Fatou Lainez Operation Date: 04/01/20 17:15 Proposed Procedures p Colonoscopy Dr Chidi Murillo Height/Weight Height: 4 ft 10 in Weight: 57.6 kg Allergies Allergy/AdvReac Type Severity Reaction Status Date / Time diltiazem Allergy Severe HIVES Verified 04/01/20 14:26 alendronate sodium Allergy Mild bad Verified 04/01/20 14:26 stomach pains cholestyramine Allergy Mild ? REMEMBER Verified 04/01/20 14:26 simvastatin Allergy Mild Headache Verified 04/01/20 14:26 ibandronate sodium Allergy Unknown Unknown Verified 04/01/20 14:26 [From Boniva] aspirin [From Aggrenox] AdvReac Mild Headache Verified 04/01/20 14:26 dipyridamole [From Aggrenox] AdvReac Mild Headache Verified 04/01/20 14:26 ezetimibe AdvReac Mild Headache Verified 04/01/20 14:26 niacin AdvReac Mild SICK TO Verified 04/01/20 14:26 STOMACH risedronate sodium AdvReac Mild STOMACH Verified 04/01/20 14:26 PAINS Medications Home Medications Medication Instructions Recorded Confirmed Last Taken cholecalciferol (vitamin D3) 1,000 unit PO QDL 06/23/18 03/30/20 08/04/18 [Vitamin D3] coenzyme Q10 [Co Q-10] 100 mg PO QDL 06/23/18 03/30/20 08/04/18 jvixckff-omi-AN-lut-zeaxanth 1 tab PO QDL 07/16/18 03/30/20 08/04/18 [Macular Vitamin] acetaminophen [Tylenol] 650 mg PO Q6H PRN 08/05/18 03/30/20 08/04/18 22:00 potassium chloride 20 mEq 20 meq PO DAILY #90 tab 08/04/19 03/30/20 Unknown tablet,extended release(part/cryst) digoxin 125 mcg (0.125 mg) tablet 125 mcg PO QDL #90 tab 09/08/19 03/30/20 Unknown atorvastatin 80 mg tablet 80 mg PO QDL #90 tab 10/15/19 03/30/20 Unknown clopidogrel 75 mg tablet 75 mg PO QDL #90 tab 11/17/19 03/30/20 Unknown furosemide 20 mg tablet 20 mg PO DAILY #90 tab 12/01/19 03/30/20 Unknown metoprolol succinate 100 mg 150 mg PO HS #135 tab 12/04/19 03/30/20 Unknown tablet,extended release 24 hr rivaroxaban 20 mg tablet 20 mg PO HS #90 tab 01/05/20 03/30/20 Unknown lisinopril 10 mg PO DAILY 03/30/20 03/30/20 Unknown Active Medications Generic Name Dose Route Start Last Admin Trade Name Freq PRN Reason Stop Dose Admin Acetaminophen 650 mg 03/30/20 23:37 04/01/20 12:11 Acetaminophen 325 Mg Tab PO 04/29/20 23:36 650 mg Q4H PRN Administration Pain or Fever Atorvastatin Calcium 80 mg 03/31/20 11:30 03/31/20 12:52 Atorvastatin 40 Mg Tab PO 04/30/20 11:29 80 mg QDL JAN Administration Digoxin 0.125 mg 03/31/20 11:30 04/01/20 12:11 Digoxin 0.125 Mg Tab PO 04/30/20 11:29 0.125 mg QDL JAN Administration Potassium Chloride/Sodium Chloride 20 meq in 1,000 mls @ 60 mls/hr 03/31/20 00:15 04/01/20 10:39 Normal Saline W/20 Meq Kcl IV 04/30/20 00:14 60 mls/hr .[id number] JAN Administration Pantoprazole Sodium 40 mg/ 10 mls @ 5 mls/min 03/31/20 00:15 04/01/20 08:36 Syringe IV 04/30/20 00:14 5 mls/min BID JAN Administration Metoprolol Succinate 150 mg 03/31/20 21:00 03/31/20 20:53 Metoprolol Succ 50mg Ext Rel Tab PO 04/30/20 20:59 150 mg HS JAN Administration NPO Date Last Intake of Fluids: 04/01/20 Time Last Intake of Fluids: 09:00 Last Intake of Fluids Comment: prep Date Last Intake of Solids: 03/31/20 Time Last Intake of Solids: 17:00 Last Intake of Solids Comment: patient poor historian, JOY Moody stated NPO since midnight Past Medical History Medical History Atrial fibrillation Cancer BREAST-RT (RADIATION) UTERINE CANCER Cardiac pacemaker in situ Confirmed ischemic stroke Coronary artery disease S/p stent x2 RCA (1993 and 2002). Followed by cardiology. Medicallay managed with clopidogrel + statin + BB + ACEi. No ASA as on AC (rivaroxaban). Dementia Diabetes mellitus, type II Dizziness Dysphagia GERD (gastroesophageal reflux disease) Hearing loss Heart failure with reduced ejection fraction Herpes, genital History of endometrial cancer Diagnosed w/ stage 1A grade 1 endometrial cancer in 05/15. s/p TLH/BSO/nodes. No further treatment at this time and is followed q6 months by heme/onc and patient care secretary Hyperlipidemia Hypertension Insomnia Macular degeneration Osteoporosis DEXA scan 2009 showing minimum T score -2.7 involving forearm. Treated with calcium and vitamin D. Did not tolerate oral bisphosphonates. Declined Reclast in the past because of potential side effects. 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 Monitored by cardiology. Transient ischemic attack (TIA) SEVERAL TIA'S IN PAST (LAST EPISODE DECEMBER 2017) Vitamin D deficiency Exercise / Class Metabolic Activity III < 4 Walking/Shop/Light housework Past Family History Family History Mother Diabetes Stroke Brother Cancer Parkinson disease Stroke Diabetes Sister Breast cancer Hypertension Diabetes Stroke Father Kidney disease Coronary heart disease Denies family history of Ovarian cancer Prostate cancer Lung cancer Colorectal cancer Past Surgical History Surgical History History of appendectomy History of cardiac catheterization History of colonoscopy History of dilatation and curettage History of hysterectomy with bilateral oophorectomy History of lumpectomy History of ovarian cystectomy Past Anesthesia History No Hx of Anesthesia Complications and No Family Hx of Anesthesia Complications History of PONV No Hx of PONV and No Hx of Motion Sickness Social History Smoking Status: Former smoker Hx Alcohol Use: No Hx Substance Use: No substance use type: does not use Physical Exam Vital Signs Last Vital Signs Temp 98.2 F 04/01/20 14:41 Pulse 69 04/01/20 14:41 Resp 14 04/01/20 14:41 BP 174/67 H 04/01/20 14:41 Pulse Ox 97 04/01/20 14:41 ENMT Mouth: + dentures Thyromental Distance: > or= 3.5 Finger Breadths Mallampati Class: II Neck normal visual inspection Respiratory normal respiratory effort Auscultation: lungs clear to auscultation bilaterally Cardiovascular Rate/Rhythm: regular rate and regular rhythm Testing Laboratory Results 04/01/20 05:59 04/01/20 05:59 PT 15.1 Seconds (9.0-12.0) H 04/01/20 05:59 INR 1.5 (0.9-1.1) H 04/01/20 05:59 APTT 28.2 Seconds (21.0-31.0) 04/01/20 05:59 Blood Type A Positive 03/30/20 19:52 Antibody Screen NEGATIVE 03/30/20 19:52
--- NOTE | 2020-04-01 15:19 | History & Physical Report ---
Date of Service April 01, 2020 Assessment & Plan (1) Symptomatic anemia: For colonoscopy today. Proc and risks explained to patient which include but not limited to med reaction, bleeding, perforation, aspiration, and missed lesions. Admission and Anticipated Discharge Date Admission Date: March 30, 2020 History of Present Illness Primary Care Provider: Pete Payne DO CC no abd complaints HPI Pt prepped for colo today. Allergies Allergy/AdvReac Type Severity Reaction Status Date / Time diltiazem Allergy Severe HIVES Verified 04/01/20 14:26 alendronate sodium Allergy Mild bad Verified 04/01/20 14:26 stomach pains cholestyramine Allergy Mild ? REMEMBER Verified 04/01/20 14:26 simvastatin Allergy Mild Headache Verified 04/01/20 14:26 ibandronate sodium Allergy Unknown Unknown Verified 04/01/20 14:26 [From Boniva] aspirin [From Aggrenox] AdvReac Mild Headache Verified 04/01/20 14:26 dipyridamole [From Aggrenox] AdvReac Mild Headache Verified 04/01/20 14:26 ezetimibe AdvReac Mild Headache Verified 04/01/20 14:26 niacin AdvReac Mild SICK TO Verified 04/01/20 14:26 STOMACH risedronate sodium AdvReac Mild STOMACH Verified 04/01/20 14:26 PAINS Home Medications Home Medications Medication Instructions Recorded Confirmed Type cholecalciferol (vitamin D3) 1,000 unit PO QDL 06/23/18 03/30/20 History [Vitamin D3] coenzyme Q10 [Co Q-10] 100 mg PO QDL 06/23/18 03/30/20 History nkgafigd-tpo-WG-lut-zeaxanth 1 tab PO QDL 07/16/18 03/30/20 History [Macular Vitamin] acetaminophen [Tylenol] 650 mg PO Q6H PRN 08/05/18 03/30/20 History potassium chloride 20 mEq 20 meq PO DAILY #90 tab 08/04/19 03/30/20 Rx tablet,extended release(part/cryst) digoxin 125 mcg (0.125 mg) tablet 125 mcg PO QDL #90 tab 09/08/19 03/30/20 Rx atorvastatin 80 mg tablet 80 mg PO QDL #90 tab 10/15/19 03/30/20 Rx clopidogrel 75 mg tablet 75 mg PO QDL #90 tab 11/17/19 03/30/20 Rx furosemide 20 mg tablet 20 mg PO DAILY #90 tab 12/01/19 03/30/20 Rx metoprolol succinate 100 mg 150 mg PO HS #135 tab 12/04/19 03/30/20 Rx tablet,extended release 24 hr rivaroxaban 20 mg tablet 20 mg PO HS #90 tab 01/05/20 03/30/20 Rx lisinopril 10 mg PO DAILY 03/30/20 03/30/20 History Past Med/Surg History Medical History Atrial fibrillation Cancer BREAST-RT (RADIATION) UTERINE CANCER Cardiac pacemaker in situ Confirmed ischemic stroke Coronary artery disease S/p stent x2 RCA (1993 and 2002). Followed by cardiology. Medicallay managed with clopidogrel + statin + BB + ACEi. No ASA as on AC (rivaroxaban). Dementia Diabetes mellitus, type II Dizziness Dysphagia GERD (gastroesophageal reflux disease) Hearing loss Heart failure with reduced ejection fraction Herpes, genital History of endometrial cancer Diagnosed w/ stage 1A grade 1 endometrial cancer in 05/15. s/p TLH/BSO/nodes. No further treatment at this time and is followed q6 months by heme/onc and screen tender Hyperlipidemia Hypertension Insomnia Macular degeneration Osteoporosis DEXA scan 2009 showing minimum T score -2.7 involving forearm. Treated with calcium and vitamin D. Did not tolerate oral bisphosphonates. Declined Reclast in the past because of potential side effects. 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 Monitored by cardiology. Transient ischemic attack (TIA) SEVERAL TIA'S IN PAST (LAST EPISODE DECEMBER 2017) Vitamin D deficiency Surgical History History of appendectomy History of cardiac catheterization History of colonoscopy History of dilatation and curettage History of hysterectomy with bilateral oophorectomy History of lumpectomy History of ovarian cystectomy Family History Mother Diabetes Stroke Brother Cancer Parkinson disease Stroke Diabetes Sister Breast cancer Hypertension Diabetes Stroke Father Kidney disease Coronary heart disease Denies family history of Ovarian cancer Prostate cancer Lung cancer Colorectal cancer Social History (Updated 01/20/20 @ 13:54 by Clarissa Collazo) Smoking Status: Former smoker Tobacco Type: Cigarettes Second Hand Exposure: No; Hx Alcohol Use: No Hx Substance Use: No Preferred Language: Maori Communication Ability: Effective Visual Impairment: Limited Hearing Ability: Hard of Hearing Digital Campaign Specialist Required: No Beliefs That Will Affect Care: None marital status: Unknown Current Living Situation: Alone current occupational status: retired Feels Safe at Home: Yes Childhood Exposure to Second-Hand Smoke: Yes caffeine: Yes Dental Care, Regularly: Yes Physical Activity Frequency: Does not Exercise Seatbelt Use: always Sunscreen Use: Yes Physical Exam Respiratory: normal respiratory effort, lungs clear to auscultation Cardiovascular: RRR, no murmur, no edema Gastrointestinal (Abdomen): normal bowel sounds, soft, nontender, no hepatosplenomegaly Results & Data ([facility]) Vital Signs (Past 12 Hours) Vital Signs Temp Pulse Pulse Resp BP BP Pulse Ox 04/01/20 14:41 36.8 C 69 14 174/67 H 97 04/01/20 12:11 72 04/01/20 11:25 36.7 C 87 18 158/69 H 97 04/01/20 10:40 98 H 20 109/68 04/01/20 10:15 82 20 107/68 98 04/01/20 09:43 84 148/65 H 04/01/20 08:02 36.7 C 71 18 174/78 H 94 04/01/20 03:24 36.7 C 75 18 133/68 95 Code Status & VTE Plan VTE Prophylaxis Plan VTE Prophylaxis will be ordered: Yes
--- NOTE | 2020-04-01 15:52 | Post Operative Brief Note ---
Immediate Post Op Note v1 Date of Surgery April 01, 2020 Pre & Post Diagnosis Operation Date: 03/31/20 17:45 Pre-Op Diagnosis: ANEMIA Post-Op Diagnosis: ANTRAL ERYTHEMA Operation Date: 04/01/20 17:15 Pre-Op Diagnosis: anemia Post-Op Diagnosis: colon polyps, diverticulosis, hemorrhoids I identified the patient and participated in the time-out.: Yes Procedure Operation Date: 03/31/20 17:45 Actual Procedures p EGD Biopsy Cytology - Taras Lainez Operation Date: 04/01/20 17:15 Actual Procedures p Colonoscopy Polypectomy - Pete Murillo Surgeon Pete Murillo Supply Planner see report Estimated Blood Loss 0 Findings See Below Polyps and diveticulosis. No explanation for anemia. Recommend output capsule endoscopy and outpt workup for elevated LFTs. Will sign off. Can resume anticoagulation tomorrow. Started solid diet.
--- NOTE | 2020-04-01 16:13 | Anesthesiology Progress Note ---
Date of Service April 01, 2020 Anesthesia Post Procedure Vital Signs Vital Signs: Temp Pulse Pulse Resp BP BP Pulse Ox 04/01/20 16:03 63 18 133/50 L 98 04/01/20 15:47 72 14 110/57 L 100 04/01/20 14:41 98.2 F 69 14 174/67 H 97 04/01/20 12:11 72 04/01/20 11:25 98.1 F 87 18 158/69 H 97 04/01/20 10:40 98 H 20 109/68 04/01/20 10:15 82 20 107/68 98 04/01/20 09:43 84 148/65 H 04/01/20 08:02 98.1 F 71 18 174/78 H 94 04/01/20 03:24 98.1 F 75 18 133/68 95 03/31/20 23:35 98.1 F 68 19 148/47 H 98 03/31/20 20:30 64 03/31/20 19:43 97.5 F L 64 18 140/87 93 Transfer of Care Handoff Completed per policy Notes Mental Status: alert / awake / arousable and participated in evaluation Patient Amnestic to Procedure: Yes Nausea / Vomiting: adequately controlled Pain: adequately controlled Airway Patency, RR, SpO2: stable & adequate BP & HR: stable & adequate Hydration State: stable & adequate Anesthetic Complications: no major complications apparent and Pt Satisfied with anesthetic care
--- NOTE | 2020-04-01 19:09 | XCELERA ---
[id number]
[2020-04-01] MEDS: METOPROLOL SUCC 50MG EXT REL TAB PO SCH (20:06)
[2020-04-02] MEDS: NSS + 20MEQ KCL 20 MEQ/1,000 ML BAG IV SCH (04:15)
--- NOTE | 2020-04-02 06:36 | Electrocardiogram Report ---
Test Reason : Blood Pressure : / mmHG Vent. Rate : 066 BPM Atrial Rate : 000 BPM P-R Int : 000 ms QRS Dur : 094 ms QT Int : 378 ms P-R-T Axes : 000 -67 203 degrees QTc Int : 396 ms Atrial fibrillation with frequent ventricular-paced complexes and with premature ventricular or aberr antly conducted complexes Left axis deviation Possible Anterior infarct Abnormal ECG When compared with ECG of 31-MAR-2020 06:53, Vent. rate has increased BY 2 BPM Confirmed by John Whitney ([id number]) on 04/02/2020 6:36:18 AM Referred By: Pete Payne Confirmed By:John Whitney
[2020-04-02 06:51] LABS: INR 1.4 (0.9-1.1); Partial Thromboplastin Time 28.8 Seconds (21.0-31.0); Prothrombin Time 14.1 Seconds (9.0-12.0)
[2020-04-02 07:17] LABS: Albumin Level 2.9 gm/dl (3.4-5.0); BUN Creatinine Ratio 17.4 (10-20); Calcium 9.4 mg/dl (8.5-10.1); Creatinine Clr Calc Pharmacy 37.9 ml/min; Est GFR (African American) 75.1; Est GFR (Non-African American) 64.8; Potassium 4.2 mmol/L (3.5-5.1)
[2020-04-02 07:20] LABS: Anisocytosis Present; Basophils # (auto) 0.05 K/uL (0-0.2); Basophils % (auto) 0.6 %; Echinocytes 1+; Eosinophils # (auto) 0.29 K/uL (0-0.5); Eosinophils % (auto) 3.4 %; Hematocrit (blood only) 31.5 % (37-47); Hypochromasia Present; Immature Granulocytes # (auto) 0.02 K/uL (0.00-0.02); Immature Granulocytes % (auto) 0.2 %; Lymphocytes # (auto) 1.27 K/uL (1.2-3.4); Lymphocytes % (auto) 14.8 %; Mean Corpuscular Hemoglobin 21.2 pg (25-34); Mean Corpuscular Hgb Conc 28.6 g/dL (32-36); Mean Corpuscular Volume 74.1 fL (80-100); Mean Platelet Volume 9.6 fL (7.4-10.4); Microcytosis Present; Monocytes # (auto) 1.18 K/uL (0.11-0.59); Monocytes % (auto) 13.7 %; Neutrophils # (auto) 5.79 K/uL (1.4-6.5); Neutrophils % (auto) 67.3 %; Nucleated RBC # (auto) 0.25 K/uL (0-0); Nucleated RBC % (auto) 2.9 %; Platelet Count 432 K/uL (130-400); RDW Coefficient of Variation 24.2 % (11.5-14.5); RDW Standard Deviation 63.7 fL (36.4-46.3); Red Blood Count 4.25 M/uL (4.2-5.4)
[2020-04-02 07:23] LABS: Albumin Globulin Ratio 1.1 (0.9-2); Bilirubin,Total 1.5 mg/dl (0.2-1); Globulin 2.6 gm/dl (2.5-4.0); Total Protein 5.5 gm/dl (6.4-8.2)
[2020-04-02] MEDS: PANTOprazole 40 MG in SYRINGE 0 ML IV SCH (08:06)
[2020-04-02] MEDS ORDERED: IRON SUCROSE 200 MG in 0.9 % SODIUM CHLORIDE 100 ML IV ONE (08:30)
[2020-04-02] MEDS ORDERED: FERROUS GLUCONATE 324 MG TAB PO SCH (09:00)
--- NOTE | 2020-04-02 09:05 | GI REPORT ---
Patient Name: Davida Smalls Procedure Date: 04/01/2020 2:55 PM Date of : 1935 Admit Type: Inpatient Age: 84 Gender: Female Attending MD: Pete Murillo MD Procedure: Colonoscopy Providers: Pete Murillo MD Referring MD: Johann George Indications: Heme positive stool, Iron deficiency anemia Medicines: Monitored Anesthesia Care Complications: No immediate complications. Estimated blood loss: Minimal. Estimated Blood Loss: Estimated blood loss was minimal. Procedure: Pre-Anesthesia Assessment: - The risks and benefits of the procedure and the sedation options and risks were discussed with the patient. All questions were answered and informed consent was obtained. - Patient identification and proposed procedure were verified prior to the procedure by the physician, the nurse and the fishing vessel captain. The procedure was verified in the procedure room. After I obtained informed consent, the scope was passed under direct vision. Throughout the procedure, the patient's blood pressure, pulse, and oxygen saturations were monitored continuously. The scope was introduced through the anus and advanced to the cecum, identified by appendiceal orifice and ileocecal valve. The colonoscopy was performed without difficulty. The patient tolerated the procedure well. Procedure and risks explained to patient which include but not limited to med reaction, bleeding, perforation, aspiration and missed lesions. Judicious gas insufflation and gas removal done on the way out. The lumen always well visualized when advancing the scope. Washes and suctioning used as needed for good visuzlization of mucosa. Prep was good. Retroflexion in the rectum to look at the distal rectum and anal canal done. Findings: Scattered medium-mouthed diverticula were found in the left colon. Internal hemorrhoids were found during retroflexion. The hemorrhoids were large. A 5 mm polyp was found in the ascending colon. The polyp was sessile. The polyp was removed with a lift and cut technique using a cold snare. Resection and retrieval were complete. Estimated blood loss was minimal. A 3 mm polyp was found in the cecum. The polyp was sessile. The polyp was removed with a cold biopsy forceps. Resection and retrieval were complete. Estimated blood loss was minimal. Two sessile polyps were found in the transverse colon. The polyps were 3 mm in size. These polyps were removed with a cold biopsy forceps. Resection and retrieval were complete. Estimated blood loss was minimal. The exam was otherwise without abnormality on direct and retroflexion views. Impression: - Diverticulosis in the left colon. - Internal hemorrhoids. - One 5 mm polyp in the ascending colon, removed using lift and cut and a cold snare. Resected and retrieved. - One 3 mm polyp in the cecum, removed with a cold biopsy forceps. Resected and retrieved. - Two 3 mm polyps in the transverse colon, removed with a cold biopsy forceps. Resected and retrieved. - The examination was otherwise normal on direct and retroflexion views. Recommendation: - [facility]. - Repeat colonoscopy is not recommended due to current age (66 years or older) for surveillance. - Await pathology results. Pete Murillo M.D. Pete Murillo MD 04/01/2020 3:49:45 PM This report has been signed electronically. Note Initiated On: 04/01/2020 2:55 PM Number of Addenda: 0 I attest to the content of the Intraoperative Record and orders documented therein, exceptions below {[id number]}
--- NOTE | 2020-04-02 11:03 | Discharge Summary ---
Date of Service April 02, 2020 Admission HPI Per Admitting Provider The patient is an 84-year-old female with a past medical history including GERD, vitamin D deficiency, dysphagia, ischemic stroke, CAD, HFrEF, hypertension, atrial fibrillation, tachybradycardia syndrome, dementia, diabetes mellitus type 2, endometrial cancer, hyperlipidemia, cardiac pacemaker and insomnia. The patient had gone to her PCP earlier today, due to persistent fatigue and dyspnea on exertion, had laboratories performed, and received a phone call from their on-call physician that hemoglobin was 6.1 and she should go to the emergency department. The patient denies any bright red blood per rectum. She reports that she did take some Pepto-Bismol, and whenever she takes that her stool is black, otherwise has had not any change in stool character over the past few months. She denies any NSAID use. She does take Xarelto on a daily basis. Admission Exam Per Admitting Provider The patient is awake, alert and oriented 3, well developed and well nourished, normocephalic and atraumatic, lying in bed and in no acute distress. HEENT--PERRL, EOMI, mucous membranes and oropharynx normal. Neck--supple. No JVD. No bruits. Thyroid normal, trachea midline, no adenopathy. Heart--normal S1 and S2. No murmurs, rubs or gallops. Lungs--clear bilaterally, no respiratory distress, no accessory muscle use. Abdomen--normal bowel sounds and soft. Nontender. Nondistended. Extremities--no cyanosis or clubbing. No edema. Dermatologic--normal skin turgor, normal color, no abnormal lymph nodes, no rash. Neurologic--cranial nerves II through XII grossly intact. Rheumatologic--normal range of motion. Psychiatric--normal affect. Principal Diagnosis Symptomatic Anemia Discharge Exam Constitutional no acute distress and not ill appearing Eyes + anicteric sclerae and PERRL; no scleral abnormality ENMT external ear and nose normal, oropharynx normal Neck trachea midline, no thyromegaly Respiratory normal respiratory effort, lungs clear to auscultation Cardiovascular Rate/Rhythm: regular rate (paced) Heart Sounds: + murmur (2/6 FLAKO) Chest (Breasts) Chest: + pacemaker Gastrointestinal (Abdomen) normal bowel sounds, soft, nontender, no hepatosplenomegaly Skin no rashes, warm and dry normal turgor Psychiatric A+Ox3, euthymic affect Discharge Data Allergies Allergy/AdvReac Type Severity Reaction Status Date / Time diltiazem Allergy Severe HIVES Verified 04/01/20 14:26 alendronate sodium Allergy Mild bad Verified 04/01/20 14:26 stomach pains cholestyramine Allergy Mild ? REMEMBER Verified 04/01/20 14:26 simvastatin Allergy Mild Headache Verified 04/01/20 14:26 ibandronate sodium Allergy Unknown Unknown Verified 04/01/20 14:26 [From Boniva] aspirin [From Aggrenox] AdvReac Mild Headache Verified 04/01/20 14:26 dipyridamole [From Aggrenox] AdvReac Mild Headache Verified 04/01/20 14:26 ezetimibe AdvReac Mild Headache Verified 04/01/20 14:26 niacin AdvReac Mild SICK TO Verified 04/01/20 14:26 STOMACH risedronate sodium AdvReac Mild STOMACH Verified 04/01/20 14:26 PAINS Consultations 03/30/20 20:57 ED Decision to Admit Stat 03/30/20 23:37 Consult Case Management - Discharge Planning Routine 03/31/20 03:22 Consult Gastroenterology Routine 04/02/20 10:20 Consult [facility] chief green officer Routine Procedures Performed Operation Date: 03/31/20 17:45 Actual Procedures p EGD Biopsy Cytology - Taras Lainez Operation Date: 04/01/20 17:15 Actual Procedures p Colonoscopy Polypectomy - Pete Murillo Ordered Studies 03/31/20 14:59 CT abd pelvis oral and IV con Urgent Hospital Course (1) Symptomatic anemia: Patient is an 84 year old female with PMHx Afib, Tachy-teo syndrome s/p PM, HFrEF, CAD s/p stent, GERD, who presented to the ED with symptomatic anemia and hemoglobin of 6.5 on admission. Symptomatic Anemia - Microcytic -Symptomatic at hemoglobin 6.5 on arrival, was transfused with 2 units of PRBC, repeat Hgb in AM 8.5, current Hgb 9.0 -Cause unclear at this time, though suspect iron deficiency, colon cancer vs GI bleed due to Xarelto and clopidogrel use and heme + stool -GI Consulted -EGD 03/31/20 with minimal erythematous patch on the lesser curvature of the antrum that was biopsied -Colonoscopy 04/01/20 with diverticulosis, internal hemorrhoids, and 4 polyps which were resected, no obvious signs of bleed. -Recommended future outpatient capsule endoscopy -Order was placed for nurse navigator to assist patient in setting up appointment. -CT Ab/Pelv w/ contrast negative for metastatic lesions, noting volume overload with anasarca and small R and trace L pleural effusions. -Iron studies Iron 31, Ferritin 7.6, TIBC 473 -Given 2 dose of Venofer while inpatient -Patient started on oral Ferrous Gluconate, to continue after discharge. -Was hydrated with IVF -Work up for hemolytic anemia negative -Of note, Indirect bilirubin was high at 1.5, unsure if secondary to severe Pulm HTN vs [place] Pulmonary Hypertension -RVSP 70 mmHg noted on Echo -Likely the reason for patients elevated LFTs -Recommend patient have follow up with Pulmonology -Order placed for nurse navigator to assist with appointment with Dr. Griffin. GERD -Continue Protonix BID Afib -Continued Digoxin and Metoprolol -Held Xarelto due to procedures, continued prior to discharge. CAD S/P Stents -Stents in 1993 and 2002 -Held Clopidogrel -Held Lipitor while LFTs high HTN -held Lisinopril HFrEF -held Lisinopril Tachy-Teo Syndrome -S/P pacemaker placement 2015 (2) GERD (gastroesophageal reflux disease): (3) Heart failure with reduced ejection fraction: (4) Coronary artery disease: (5) Anticoagulant long-term use: (6) Atrial fibrillation: (7) Tachy-teo syndrome: (8) Diabetes mellitus, type II: (9) Hyperlipidemia: (10) Cardiac pacemaker in situ: Total Time Total Time Spent Total Time Spent (In Minutes): <30 Discharge Plan Discharge Items Patient Disposition: Home - Home Health Services Reason For Visit: ANEMIA Discharge Diagnosis: Symptomatic Anemia Activity: Resume your previous activity Non-emergency contact: Primary Care Provider Call non-emergency contact if: you have any medication questions and your symptoms worsen Follow-up/Referrals: Simon Griffin MD [Physician] - 04/07/20 1:00 pm Taras Lainez [Physician] - 04/12/20 9:45 am (Follow up Capsule Endoscopy. Pt will see Moira Parsons on 04/12/2020 at 9:45 a.m.) Pete Payne DO [Primary Care Provider] - 04/08/20 11:30 am Diet: Regular Addtl Attending Provider Instructions: Ms. Bennett, It was our pleasure caring for you at [facility] from 03/30/20 to 04/02/20. Please see below for a summary of your care. Symptomatic Anemia -Upon your admission you were found to have a Hemoglobin level ("amount of blood") of 6.5 which likely contributed to your over all fatigue and weakness. -You were given 2 units of blood in the hospital which both improved your hemoglobin levels and your fatigue and energy levels. -You underwent an EGD and Colonoscopy with our GI doctors, to which they noted no obvious bleeds in your esophagus, stomach, or colon. -They would like you to follow up with them outpatient for a follow through capsule endoscopy. -You were also given IV iron while you were inpatient as you were found to be fairly iron deficient. -You were prescribed oral iron to take, this was sent to [facility]. 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 Pulmonary Hypertension -An Echocardiogram was performed which showed you had fairly severe Pulmonary Hypertension with Right Ventricular Systolic Pressures at 70mmHg -This was likely the cause of your abnormal liver values -We would like you to follow up with our Pulmonology department (Lung doctors) in order to further work this up. -They may order a sleep study for you to screen for Sleep Apnea. -An order as placed for our nursing navigator to assist you in getting an appointment. -Please continue your remaining medications as prescribed -Please follow up with your PCP in the next week. Pending Studies at Discharge: No Stand-Alone Forms: My [facility], Smoking Cessation Medications and DC Order Prescriptions: New ferrous gluconate 324 mg (38 mg iron) Tablet 324 mg PO QAM 30 Days Qty: 30 RF: 0 Continued potassium chloride 20 mEq tablet,ER particles/crystals 20 meq PO DAILY Qty: 90 RF: 3 digoxin 125 mcg (0.125 mg) tablet 125 mcg PO QDL Qty: 90 RF: 3 atorvastatin 80 mg tablet 80 mg PO QDL Qty: 90 RF: 3 clopidogrel 75 mg tablet 75 mg PO QDL Qty: 90 RF: 3 furosemide 20 mg tablet 20 mg PO DAILY Qty: 90 RF: 3 metoprolol succinate 100 mg tablet extended release 24 hr 150 mg PO HS Qty: 135 RF: 3 Xarelto 20 mg tablet 20 mg PO HS Qty: 90 RF: 1 Macular Vitamin 500-5-1 mcg-mg-mg Tablet 1 tab PO QDL RF: 0 lisinopril 10 mg tablet 10 mg PO DAILY RF: 0 coenzyme Q10 [Co Q-10] 100 mg Capsule 100 mg PO QDL RF: 0 cholecalciferol (vitamin D3) [Vitamin D3] 1,000 unit Tablet 1,000 unit PO QDL RF: 0 acetaminophen [Tylenol] 325 mg Tablet 650 mg PO Q6H PRN (Reason: Pain) RF: 0 Discharge Orders: Discharge Order (Routine); Ordered 04/02/20 Ordered By: Jacob Crain Admission Data Admit Date/Time: 03/30/20 22:24 Attending Provider: Johann George Admit Provider: Albert Dai Primary Care Provider: Pete Payne Other Providers: Albert Dai ; Taras Lainez ; [facility] Other Interventions: Discharge Summary Assessment (RN) Last Done: 04/02/20 13:40 Supervising Physician Co-Signing Physician Notes I personally examined the patient and verified all chung points of history and exam, discussed case, and agree with decision making with Dr Crain. feels OK wants to go home. vitals noted nad heent nc at mmm breathing unlabored no accessory muscles good effort skin no rashes no pallor or icterus anemia - EGD neg. colo without obvious source of bleed. capsule endoscopy as outpt - but more than likely AVMs given negative w/u thus far. iron supplementation; f/u CBC periodically - if Hgb plateaus then would repeat Fe studies to ensure getting enough supplementation severe pulmonary HTN - sleep study, pulm eval. stable for home elevated LFTs - improving - was high output from anemia + pulm HTN creating an acute R heart failure picture and nutmeg liver otherwise as above Resident Activity Tracking Resident Involvement: Resident Care Provided Care Provided: Adult Hospital Medicine
[2020-04-02] MEDS ORDERED: lisinopriL 10 MG TAB PO SCH (11:15)
[2020-04-02] MEDS ORDERED: CHOLECALCIFEROL 1,000 UNITS 25 MCG TAB PO SCH (11:30)
[2020-04-02] MEDS ORDERED: CLOPIDOGREL BISULFATE 75 MG TAB PO SCH (11:30)
[2020-04-02] MEDS ORDERED: NON-FORMULARY MEDICATION (Coenzyme Q10 [Co Q-10] 100 MG) PO SCH (11:30)
[2020-04-02] MEDS: DIGOXIN 0.125 MG TAB PO SCH (12:31)
--- NOTE | 2020-04-02 17:27 | Billing Data ---
Date of Service April 02, 2020 Coding Level of Care Code D/C Day Management <30 mins
[2020-04-02] MEDS ORDERED: RIVAROXABAN 20 MG TAB PO SCH (21:00)
== END 2020-04-02 14:36 | disposition home health service (06) | DRG 811 ==
LOC: ED 19:32 → 2E 22:24 → SUATTDRO 22:24 → 2E 23:07